=== PATIENT | male | born 1955 | race American Indian/Alaskan Native ===

== ENCOUNTER 2017-01-18 16:19 | Inpatient (IN) | payer MEDICARE, OTHER ==
[2017-01-18] MEDS ORDERED: NACL 0.9% 500 ML 500 ML IV ONE ×2 (16:26→18:36)
[2017-01-18] MEDS ORDERED: ZOSYN/NS 4.5GM/100ML 4.5 GM/100 ML VIAL IV ONE (16:34)
[2017-01-18] MEDS ORDERED: VANCOMYCIN/NS 1 GM/250 ML 1 GM/250 ML BAG IV ONE ×3 (16:34→19:30)
--- NOTE | 2017-01-18 16:58 | Emergency Department Report ---
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 denies: abdominal pain, chest pain, confusion, cough, diaphoresis, muscle aches, nausea/vomiting, rash, shortness of breath, sore throat, stiff neck, syncope ED Review of Systems ROS: Stated complaint: CHEST PAIN X 15 MIN/SEPTIC Other details as noted in HPI Comment: All other systems reviewed and negative ED Past Medical Hx - Past Medical History Previous Medical History?: Yes Hx Hypertension: Yes Hx Renal Disease: Yes - Surgical History Past Surgical History?: Yes Additional Surgical History: abdominal surgery - Social History Smoking Status: Never Smoker Substance Use Type: None - Medications Home Medications: Home Medications Medication Instructions Recorded Confirmed Last Taken Type Ciprofloxacin HCl [Ciprofloxacin 500 mg PO TID 01/18/17 01/18/17 Unknown History TAB] Gabapentin [Neurontin] 300 mg PO BID 01/18/17 01/18/17 Unknown History Labetalol HCl [Labetalol HCl] 200 mg PO Q12H 01/18/17 01/18/17 Unknown History NIFEdipine XL [Procardia Xl] 120 mg PO BID 01/18/17 01/18/17 Unknown History Rosuvastatin (Nf) [Crestor] 10 mg PO QHS 01/18/17 01/18/17 Unknown History cloNIDine [Catapres] 0.2 mg PO QDAY 01/18/17 01/18/17 Unknown History metroNIDAZOLE [Flagyl TAB] 250 mg PO BID 01/18/17 01/18/17 Unknown History predniSONE [Deltasone] 20 mg PO BID 01/18/17 01/18/17 Unknown History traMADol [Ultram 50 MG tab] 50 mg PO PRN PRN 01/18/17 01/18/17 Unknown History ED Physical Exam - General Limitations: Other General appearance: alert, in distress - Head Head exam: Present: atraumatic, normocephalic - Eye Eye exam: Present: normal appearance, PERRL - ENT ENT exam: Present: normal exam, mucous membranes dry - Neck Neck exam: Present: normal inspection - Respiratory Respiratory exam: Present: respiratory distress, rhonchi - Cardiovascular Cardiovascular Exam: Present: tachycardia - GI/Abdominal GI/Abdominal exam: Present: soft. Absent: distended, tenderness, guarding, rebound, rigid - Extremities Exam Extremities exam: Present: normal inspection - Back Exam Back exam: Present: normal inspection, full ROM ED Course Vital Signs 01/18/17 16:21 Temperature 104 F H - Central Line Placement Right Femoral Time Out Performed: Yes Patient Placed on Monitor/Pulse Ox: Yes Prep: mask, gown Central Line Prep: Povidone-Iodine 1%, Chlorhexidine scrub Local Anesthesia Used: Lidocaine 1% Ultrasound Used for Placement: No Central Line Lumen Inserted: single Bloods Obtained for Lab: No Central Line Position: good blood return, all ports aspirated, flus Dressing Applied: Tegaderm Patient Tolerated Procedure: well Complications: none ED Medical Decision Making - Lab Data Result diagrams: 01/18/17 16:34 01/18/17 16:34 - EKG Data -: EKG Interpreted by Me Rate: tachycardia - Radiology Data Radiology results: report reviewed, image reviewed - Medical Decision Making patient will need admisison for possible sepsis , recently dc yesterday for diverticulitis from another facility, HR at 140, fever at 104, WBC is normal , and he his isn his normal renal failure status , elevated liver enzymes , abx given will admit. Critical care time in (mins) excluding proc time.: 45 Critical care attestation.: If time is entered above; I have spent that time in minutes in the direct care of this critically ill patient, excluding procedure time. ED Disposition Clinical Impression: Sepsis Disposition: [id number] OP ADMIT IP TO THIS HOSP Is pt being admited?: Yes Does the pt Need Aspirin: No Condition: Fair Referrals: TATE RONQUILLO MD [Primary Care Provider] - 3-5 Days Time of Disposition: 18:06
[2017-01-18 17:23] LABS: Hematocrit 42.5 % (35.5-45.6); Hemoglobin 13.8 gm/dl (11.8-15.2); Mean Corpuscular HGB Conc 33 % (32-34); Mean Corpuscular Hemoglobin 32 pg (28-32); Mean Corpuscular Volume 98 fl (84-94); Platelet Count 200 K/mm3 (140-440); Red Blood Count 4.34 M/mm3 (3.65-5.03); Red Cell Distribution Width 18.5 % (13.2-15.2); White Blood Count 8.7 K/mm3 (4.5-11.0)
[2017-01-18 17:24] LABS: Albumin 3.9 g/dL (3.9-5); Albumin/Globulin Ratio 1.4 %; BUN/Creatinine Ratio 1.83; Bilirubin,Total 0.8 mg/dL (0.1-1.2); Chloride 89.3 mmol/L (98-107); Total Protein 6.6 g/dL (6.3-8.2)
[2017-01-18 17:29] LABS: Potassium 5.2 mmol/L (3.6-5.0)
[2017-01-18 17:39] LABS: INR 1.06 (0.87-1.13)
[2017-01-18 17:47] LABS: Erythrocyte Sedimentation Rate 61 mm/Hr (0-20)
--- NOTE | 2017-01-18 17:50 | History and Physical Report ---
History of Present Illness Chief complaint: fever, confusion History of present illness: 61 YO Male with HTN, CKD 4, Obesity presents to ED for evaluation. Pt unable to provide detailed history. History taken from family members who are at the bedside during exam and interview. Pt family report fever, and confusion, for the past 1 day with worsening symptoms over the past 3 hours. Pt family denies reports of trauma, CP,Palpitations, NVD, BRBPR, Syncope, Hemoptysis, Productive cough, Recent ill contacts, headache, Neck Pain. Pt seen and evaluated in ED and found to be hypotensive, and encephalopathic. PT treated with IVF, pressor support. Central line placed in ED. Past History Past Medical History: ESRD, hypertension Past Surgical History: No surgical history, Other (reviewed) Social history: , lives with family. denies: smoking, alcohol abuse, prescription drug abuse Family history: diabetes, hypertension Medications and Allergies Allergies Allergy/AdvReac Type Severity Reaction Status Date / Time No Known Allergies Allergy Unverified 01/18/17 16:26 Home Medications Medication Instructions Recorded Confirmed Last Taken Type Ciprofloxacin HCl [Ciprofloxacin 500 mg PO TID 01/18/17 01/18/17 Unknown History TAB] Gabapentin [Neurontin] 300 mg PO BID 01/18/17 01/18/17 Unknown History Labetalol HCl [Labetalol HCl] 200 mg PO Q12H 01/18/17 01/18/17 Unknown History NIFEdipine XL [Procardia Xl] 120 mg PO BID 01/18/17 01/18/17 Unknown History Rosuvastatin (Nf) [Crestor] 10 mg PO QHS 01/18/17 01/18/17 Unknown History cloNIDine [Catapres] 0.2 mg PO QDAY 01/18/17 01/18/17 Unknown History metroNIDAZOLE [Flagyl TAB] 250 mg PO BID 01/18/17 01/18/17 Unknown History predniSONE [Deltasone] 20 mg PO BID 01/18/17 01/18/17 Unknown History traMADol [Ultram 50 MG tab] 50 mg PO PRN PRN 01/18/17 01/18/17 Unknown History Active Meds: Active Medications Vancomycin HCl (Vancomycin/Ns 1 Gm/250 Ml) 1 gm in 250 mls @ 167.007 mls/hr IV ONCE ONE PRN Reason: Protocol Stop: 01/18/17 18:03 Review of Systems ROS unobtainable: due to mental status Exam - Constitutional Vitals: Temp Pulse Resp BP Pulse Ox 104 F H 01/18/17 16:21 General appearance: Present: obese - EENT Eyes: Present: PERRL - Neck Neck: Present: supple, normal ROM - Respiratory Respiratory effort: labored Respiratory: bilateral: diminished - Cardiovascular Rhythm: other (tachycardic) Heart Sounds: Present: S1 & S2. Absent: rub, click - Extremities Extremities: no ischemia, abnormal (Capillary refill: 3.5 seconds) Extremity abnormal: edema Peripheral Pulses: within normal limits - Abdominal General gastrointestinal: Present: soft, non-tender, non-distended, normal bowel sounds Male genitourinary: Present: normal - Integumentary Integumentary: Present: clear, dry, decreased turgor - Musculoskeletal Musculoskeletal: generalized weakness - Psychiatric Psychiatric: no intact judgment & insight, no memory intact - Neurologic Neurologic: CNII-XII intact, moves all extremities, no gait normal Results - Labs CBC & Chem 7: 01/18/17 16:34 01/18/17 16:34 Labs: Abnormal lab results 01/18/17 01/18/17 01/18/17 Range/Units 16:34 16:34 16:34 MCV 98 H (84-94) fl RDW 18.5 H (13.2-15.2) % VBG pH 7.423 H (7.320-7.420) Sodium 136 L (137-145) mmol/L Potassium 5.2 H (3.6-5.0) mmol/L Chloride 89.3 L (98-107) mmol/L BUN 25 H (9-20) mg/dL Creatinine 13.6 H (0.8-1.5) mg/dL Glucose 136 H (75-100) mg/dL AST 359 H (5-40) units/L ALT 346 H (7-56) units/L C-Reactive Protein (0.00-1.30) mg/dL 01/18/17 Range/Units 16:50 MCV (84-94) fl RDW (13.2-15.2) % VBG pH (7.320-7.420) Sodium (137-145) mmol/L Potassium (3.6-5.0) mmol/L Chloride (98-107) mmol/L BUN (9-20) mg/dL Creatinine (0.8-1.5) mg/dL Glucose (75-100) mg/dL AST (5-40) units/L ALT (7-56) units/L C-Reactive Protein 12.30 H (0.00-1.30) mg/dL Assessment and Plan - Patient Problems (1) Sepsis Current Visit: Yes Status: Acute Qualifiers: Sepsis type: Escherichia coli Qualified Code(s): A41.51 - Sepsis due to Escherichia coli [E. coli] Plan to address problem: Sepsis Protocol: IV abx, IVF, pressor support, monitor uop q shift, blood cultures, serial lactate level, The high probability of a clinically significant, sudden or life threatening deterioration of the [pulmonary, cardiac, renal] system(s) required my full and direct attention, intervention and personal management. The aggregate critical care time was [65] minutes. This time is in addition to time spent performing reported procedures but includes the following: [x] Data Review and interpretation [x] Patient assessment and monitoring of vital signs [x] Documentation [x] Medication orders and management (2) ESRD (end stage renal disease) Current Visit: Yes Status: Acute Plan to address problem: Nephrology consulted, dialysis as per renal team. (3) Hyperkalemia Current Visit: Yes Status: Acute Plan to address problem: kayelelate, calcium gluconate, telemetry monitoring. (4) HTN (hypertension) Current Visit: Yes Status: Acute Qualifiers: Hypertension type: H Plan to address problem: hypotensive at this time, hold antihypertensive medication (5) DVT prophylaxis Current Visit: Yes Status: Acute
[2017-01-18] MEDS ORDERED: MILK OF MAGNESIA PO PRN (17:58)
[2017-01-18] MEDS ORDERED: DUONEB *Not for PRN Use IH (17:58)
[2017-01-18] MEDS ORDERED: TYLENOL PO PRN (17:58)
[2017-01-18] MEDS ORDERED: ZOFRAN IV PRN (17:58)
[2017-01-18] MEDS ORDERED: DULCOLAX PR PRN (17:58)
[2017-01-18] MEDS ORDERED: XYLOCAINE 1% 20 mL ONE (18:25)
[2017-01-18] MEDS ORDERED: NACL 0.9% 1000 ML IV ONE (18:36)
[2017-01-18] MEDS ORDERED: VANCOMYCIN VIAL IV ONE (18:36)
[2017-01-18] MEDS ORDERED: PROVENTIL IH PRN (18:37)
[2017-01-18] MEDS ORDERED: LEVOPHED DRIP 4 MG/NS 250 ML 4 MG/250 ML BAG IV ONE (18:48)
[2017-01-18] MEDS ORDERED: VANCOMYCIN PHARMACY TO DOSE IV SCH (19:00)
[2017-01-18] MEDS ORDERED: LEVOPHED DRIP 4 MG/NS 250 ML 4 MG/250 ML BAG IV SCH (19:00)
[2017-01-18] MEDS ORDERED: NORMODYNE PO SCH (19:00)
[2017-01-18 19:02] LABS: Basophils % (Manual) 0 % (0.0-1.8); Blastocytes % (Manual) 0 %
[2017-01-18 19:03] LABS: Diff Status Complete; Large Platelets Few; RBC Morphology Normal
[2017-01-18] MEDS ORDERED: XYLOCAINE 1% 20 mL INFILTRATI ONE (19:09)
[2017-01-18] MEDS ORDERED: KIONEX PR ONE (19:10)
[2017-01-18] MEDS ORDERED: CALCIUM GLUCONATE 1,000 MG in NACL 0.9% 100 ML IV ONE (19:10)
[2017-01-18] MEDS ORDERED: VANCOMYCIN 2,000 MG in NACL 0.9% 500 ML 500 ML IV ONE (20:00)
[2017-01-18] MEDS ORDERED: TYLENOL ONE (20:20)
[2017-01-18] MEDS ORDERED: NON-FORMULARY (Rosuvastatin (Nf) 10 MG) PO SCH (22:00)
[2017-01-18] MEDS ORDERED: ZOSYN/NS 4.5GM/100ML 4.5 GM/100 ML VIAL IV SCH (22:00)
[2017-01-18] MEDS ORDERED: PROCARDIA XL PO SCH (22:00)
[2017-01-18] MEDS: DELTASONE PO SCH (22:05)
[2017-01-18] MEDS: PEPCID PO SCH (22:29)
[2017-01-18] MEDS: NEURONTIN PO SCH (22:29)
[2017-01-19] MEDS: ULTRAM PO PRN ×2 (00:18→07:02)
[2017-01-19] MEDS: PERCOCET 5/325 PO PRN ×2 (01:39→20:36)
[2017-01-19] MEDS: ZOSYN/NS 2.25 GM/50ML 2.25 GM/50 ML BAG IV SCH (07:00)
--- NOTE | 2017-01-19 07:44 | XRay Report ---
Single view chest: History: Possible sepsis. Findings: Cardiomegaly. Trachea is midline. Faint airspace opacities are noted bilaterally in the lower lobes. Normal CP angles. Impression: Early pulmonary edema or bilateral pneumonia.
--- NOTE | 2017-01-19 07:45 | XRay Report ---
Single view chest: Compared to 01/18/17 obtained at 4:58 PM. History: Failed central line placement. Findings: Cardiomegaly. Trachea is midline. No pneumothorax or pleural effusion. No significant interval change. PICC line not visualized. Impression: Findings as detailed above.
[2017-01-19 08:34] LABS: BUN/Creatinine Ratio 2.03; Calcium 9.8 mg/dL (8.4-10.2); Chloride 93.1 mmol/L (98-107)
[2017-01-19 08:35] LABS: Potassium 6.5 mmol/L (3.6-5.0)
[2017-01-19 09:15] LABS: White Blood Count TNR K/mm3 (4.5-11.0)
[2017-01-19 09:16] LABS: Hematocrit TNR % (35.5-45.6); Hemoglobin TNR gm/dl (11.8-15.2); Mean Corpuscular HGB Conc TNR % (32-34); Mean Corpuscular Hemoglobin TNR pg (28-32); Mean Corpuscular Volume TNR fl (84-94); Platelet Count TNR K/mm3 (140-440); Red Blood Count TNR M/mm3 (3.65-5.03); Red Cell Distribution Width TNR % (13.2-15.2)
[2017-01-19 09:17] LABS: Mean Platelet Volume TNR fl (6-12)
[2017-01-19] MEDS ORDERED: CATAPRES PO SCH (10:00)
--- NOTE | 2017-01-19 10:26 | Progress Note ---
Assessment and Plan Assessment and plan: 61 YO Male with HTN, CKD 4, Obesity brought by family for progressive fever, and confusion, for 1 day Sepstic shock/severe sepsis Due to pneumonia, continue broad-spectrum antibiotics, obtain sputum cultures , obtain UA, follow blood cultures Continue IV fluids, vision has been weaned off pressor support, monitor blood pressure closely. Hold all blood pressure medications, Community-acquired Pneumonia, likely due to gram-positive bacteria Continue antibiotics as listed above, obtain sputum cultures. metabolic encephalopathy due to sepsis, rx underlying cause ESRD (end stage renal disease) Nephrology consulted, dialysis as per renal team. Hyperkalemia to be corrected by HD HTN (hypertension) hypotensive at this time, hold antihypertensive medication Dementia with Delireum continue supportive care, frequent reorientation, restraints to avoid line pulling DVT prophylaxis heparin subq The high probability of a clinically significant, sudden or life threatening deterioration of the [pulmonary, cardiac, renal] system(s) required my full and direct attention, intervention and personal management. The aggregate critical care time was [33] minutes. This time is in addition to time spent performing reported procedures but includes the following: [x] Data Review and interpretation [x] Patient assessment and monitoring of vital signs [x] Documentation [x] Medication orders and management History Interval history: RN notified me that he got confused last night and pulled out his Femoral line Hospitalist Physical - Physical exam Narrative exam: General: Patient appears well in no distress HEENT: MMM, EOMI cardiac: S1-S2 heard lungs: clear to auscultation, abdomen: soft, nontender, nondistended bowel sounds positive extremities: no edema clubbing or cyanosis Skin: no rash or lesion Neuro: no focal deficit Psych: appropriate behavior and mood, cognition intact - Constitutional Vitals: Temp Pulse Resp BP Pulse Ox 98.1 F 90 30 H 111/66 99 01/19/17 08:00 01/19/17 08:30 01/19/17 07:30 01/19/17 08:30 01/19/17 08:30 General appearance: Present: obese Results - Labs CBC & Chem 7: 01/19/17 10:12 01/19/17 10:12 Labs: Laboratory Last Values WBC TNR 01/19/17 07:48 RBC TNR 01/19/17 07:48 Hgb TNR 01/19/17 07:48 Hct TNR 01/19/17 07:48 MCV TNR 01/19/17 07:48 MCH TNR 01/19/17 07:48 MCHC TNR 01/19/17 07:48 RDW TNR 01/19/17 07:48 Plt Count TNR 01/19/17 07:48 Add Manual Diff Complete 01/18/17 16:34 Total Counted 100 01/18/17 16:34 Seg Neutrophils % Watch Crystal Cutter 01/18/17 16:34 Seg Neuts % (Manual) 75.0 % (40.0-70.0) H 01/18/17 16:34 Band Neutrophils % 19.0 % 01/18/17 16:34 Lymphocytes % (Manual) 1.0 % (13.4-35.0) L 01/18/17 16:34 Reactive Lymphs % (Man) 0 % 01/18/17 16:34 Monocytes % (Manual) 4.0 % (0.0-7.3) 01/18/17 16:34 Eosinophils % (Manual) 1.0 % (0.0-4.3) 01/18/17 16:34 Basophils % (Manual) 0 % (0.0-1.8) 01/18/17 16:34 Metamyelocytes % 0 % 01/18/17 16:34 Myelocytes % 0 % 01/18/17 16:34 Promyelocytes % 0 % 01/18/17 16:34 Blast Cells % 0 % 01/18/17 16:34 Nucleated RBC % Not Reportable 01/18/17 16:34 Seg Neutrophils # Man 6.5 K/mm3 (1.8-7.7) 01/18/17 16:34 Band Neutrophils # 1.7 K/mm3 01/18/17 16:34 Lymphocytes # (Manual) 0.1 K/mm3 (1.2-5.4) L 01/18/17 16:34 Abs React Lymphs (Man) 0.0 K/mm3 01/18/17 16:34 Monocytes # (Manual) 0.3 K/mm3 (0.0-0.8) 01/18/17 16:34 Eosinophils # (Manual) 0.1 K/mm3 (0.0-0.4) 01/18/17 16:34 Basophils # (Manual) 0.0 K/mm3 (0.0-0.1) 01/18/17 16:34 Metamyelocytes # 0.0 K/mm3 01/18/17 16:34 Myelocytes # 0.0 K/mm3 01/18/17 16:34 Promyelocytes # 0.0 K/mm3 01/18/17 16:34 Blast Cells # 0.0 K/mm3 01/18/17 16:34 WBC Morphology Not Reportable 01/18/17 16:34 Hypersegmented Neuts Not Reportable 01/18/17 16:34 Hyposegmented Neuts Not Reportable 01/18/17 16:34 Hypogranular Neuts Not Reportable 01/18/17 16:34 Smudge Cells Not Reportable 01/18/17 16:34 Toxic Granulation Not Reportable 01/18/17 16:34 Toxic Vacuolation Not Reportable 01/18/17 16:34 Dohle Bodies Not Reportable 01/18/17 16:34 Pelger-Huet Anomaly Not Reportable 01/18/17 16:34 Lanny Rods Not Reportable 01/18/17 16:34 Platelet Estimate Appears normal 01/18/17 16:34 Clumped Platelets Not Reportable 01/18/17 16:34 Plt Clumps, EDTA Not Reportable 01/18/17 16:34 Large Platelets Few 01/18/17 16:34 Giant Platelets Not Reportable 01/18/17 16:34 Platelet Satelliting Not Reportable 01/18/17 16:34 Plt Morphology Comment Not Reportable 01/18/17 16:34 RBC Morphology Normal 01/18/17 16:34 Dimorphic RBCs Not Reportable 01/18/17 16:34 Polychromasia Not Reportable 01/18/17 16:34 Hypochromasia Not Reportable 01/18/17 16:34 Poikilocytosis Not Reportable 01/18/17 16:34 Anisocytosis Not Reportable 01/18/17 16:34 Microcytosis Not Reportable 01/18/17 16:34 Macrocytosis Not Reportable 01/18/17 16:34 Spherocytes Not Reportable 01/18/17 16:34 Pappenheimer Bodies Not Reportable 01/18/17 16:34 Sickle Cells Not Reportable 01/18/17 16:34 Target Cells Not Reportable 01/18/17 16:34 Tear Drop Cells Not Reportable 01/18/17 16:34 Ovalocytes Not Reportable 01/18/17 16:34 Helmet Cells Not Reportable 01/18/17 16:34 Lavarez-Emmonak Bodies Not Reportable 01/18/17 16:34 Chama Rings Not Reportable 01/18/17 16:34 Keenan Cells Not Reportable 01/18/17 16:34 Bite Cells Not Reportable 01/18/17 16:34 Crenated Cell Not Reportable 01/18/17 16:34 Elliptocytes Not Reportable 01/18/17 16:34 Acanthocytes (Spur) Not Reportable 01/18/17 16:34 Rouleaux Not Reportable 01/18/17 16:34 Hemoglobin C Crystals Not Reportable 01/18/17 16:34 Schistocytes Not Reportable 01/18/17 16:34 Malaria parasites Not Reportable 01/18/17 16:34 ESR 61 mm/Hr (0-20) 01/18/17 16:34 Colten Bodies Not Reportable 01/18/17 16:34 Hem Pathologist Commnt No 01/18/17 16:34 PT 14.3 Sec. (12.2-14.9) 01/18/17 16:34 INR 1.06 (0.87-1.13) 01/18/17 16:34 VBG pH 7.423 (7.320-7.420) H 01/18/17 16:34 Sodium 132 mmol/L (137-145) L 01/19/17 07:48 Potassium 6.5 mmol/L (3.6-5.0) H* D 01/19/17 07:48 Chloride 93.1 mmol/L (98-107) L 01/19/17 07:48 Carbon Dioxide 23 mmol/L (22-30) 01/19/17 07:48 Anion Gap 22 mmol/L 01/19/17 07:48 BUN 32 mg/dL (9-20) H 01/19/17 07:48 Creatinine 15.7 mg/dL (0.8-1.5) H 01/19/17 07:48 Estimated GFR 4 ml/min 01/19/17 07:48 BUN/Creatinine Ratio 2.03 % 01/19/17 07:48 Glucose 148 mg/dL (75-100) H 01/19/17 07:48 Lactic Acid 1.60 mmol/L (0.7-2.0) 01/18/17 21:17 Calcium 9.8 mg/dL (8.4-10.2) 01/19/17 07:48 Total Bilirubin 0.80 mg/dL (0.1-1.2) 01/18/17 16:34 AST 359 units/L (5-40) H 01/18/17 16:34 ALT 346 units/L (7-56) H 01/18/17 16:34 Alkaline Phosphatase 116 units/L (35-129) 01/18/17 16:34 C-Reactive Protein 12.30 mg/dL (0.00-1.30) H 01/18/17 16:50 Total Protein 6.6 g/dL (6.3-8.2) 01/18/17 16:34 Albumin 3.9 g/dL (3.9-5) 01/18/17 16:34 Albumin/Globulin Ratio 1.4 % 01/18/17 16:34 Blood Type A POSITIVE 01/18/17 21:12 Antibody Screen TNR 01/18/17 21:12 [place] Antibody Screen Negative 01/18/17 21:12
[2017-01-19 10:39] LABS: Hematocrit 37.5 % (35.5-45.6); Mean Corpuscular HGB Conc 32 % (32-34); Mean Corpuscular Hemoglobin 32 pg (28-32); Mean Corpuscular Volume 98 fl (84-94); Platelet Count 197 K/mm3 (140-440); Red Blood Count 3.82 M/mm3 (3.65-5.03); Red Cell Distribution Width 18.7 % (13.2-15.2); White Blood Count 13.4 K/mm3 (4.5-11.0)
[2017-01-19 10:58] LABS: BUN/Creatinine Ratio 2.09; Calcium 9.9 mg/dL (8.4-10.2); Chloride 92.6 mmol/L (98-107)
[2017-01-19 10:59] LABS: Potassium 6.5 mmol/L (3.6-5.0)
[2017-01-19] MEDS: DELTASONE PO SCH ×2 (12:26→22:47)
[2017-01-19] MEDS: NEURONTIN PO SCH ×2 (12:27→22:48)
[2017-01-19] MEDS: PEPCID PO SCH ×2 (12:41→22:48)
--- NOTE | 2017-01-19 12:53 | Admit Criteria Form ---
Admission Criteria Documentation: SEPSIS and OTHER FEBRILE ILLNESS, W/O FOCAL INFECTION Clinical Indications for Admission to Inpatient Care ( Place 'X' for any and all applicable criteria): Admission is indicated for ANY ONE of the following (1)(2)(3)(4): [ ] I. Bacteremia [ ]II. Suspected or identified specific infection requiring hospitalization (eg, meningitis, endocarditis) [ ]III. Hemodynamic instability [ ]IV. Altered mental status [ ]V. Failure or unavailability of outpatient antimicrobial treatment [ ]. Hypoxemia [ ]VII. Seizures [ ]VIII. High-risk febrile neutropenia [ ]IX. Need for parenteral antibiotic in patient who is likely to abuse vascular access device (eg, injection drug user) [A](7) [ ]X. Temperature greater than 104.9 degrees F (40.5 degrees C) (oral) [ X]XI. Inpatient admission required rather than observation care because of ANY ONE of the following: [ X]1) Specific infection identified that is too severe for outpatient treatment or observation care trial [ ]2) Metabolic disorder (eg, hypoglycemia, hyperglycemia, metabolic acidosis) that is severe or persistent [ ]3) Temperature greater than 103.1 degrees F (39.5 degrees C) ( oral) that is not responsive to observation care treatment [ ]4) IV fluid to replace significant ongoing (eg, for over 24 hours) losses (> 3 L/m2 per day) [ ]5) Supplemental oxygen or respiratory treatments for over 24 hours that is performable only in acute inpatient setting [ ]6) Parenteral nutrition regimen need that must be implemented on inpatient basis [ ]7) Strict or protective (eg, laminar flow) isolation [ ]8) Other condition, treatment or monitoring requiring inpatient admission Extended stay beyond goal length of stay may be needed for(1)(3) [ ]a) Sepsis or septic shock(22) [ ]b) Positive blood cultures [ ]c) Insufficient oral intake [ ]d) High-risk febrile neutropenia(29)(30) [ ]e) Continued fever and clinical instability [ ]f) Clinically active comorbid illness (e.g,heart failure, renal failure , diabetes) The original [facility] content created by Delisa Florez has been revised. The portions of the content which have been revised are identified through the use of italic text or in bold, and Delisa Florez has neither reviewed nor approved the modified material. All other unmodified content is copyright [facility]. Please see references footnoted in the original [facility] edition 2016 Admission Criteria Met: Yes
[2017-01-19] MEDS ORDERED: HEPARIN/NS 5000 UNIT/500ML(CATH LAB) 500 ML IR ONE (13:01)
[2017-01-19] MEDS ORDERED: XYLOCAINE 2% INFILTRATI ONE (13:01)
[2017-01-19] MEDS ORDERED: VERSED ONE (13:01)
[2017-01-19] MEDS ORDERED: SUBLIMAZE ONE (13:01)
[2017-01-19] MEDS ORDERED: NACL 0.9% 250ML 0 ML ONE (13:02)
[2017-01-19] MEDS ORDERED: ANCEF/STERILE WATER 2 GM/20 ML 2 GM/20 ML SYRINGE IV ONE (13:02)
--- NOTE | 2017-01-19 14:00 | Operative Report ---
Operative Report Operative Report: EXAM: ULTRASOUND AND FLUOROSCOPIC GUIDED PLACEMENT OF TUNNELED CENTRAL VENOUS CATHETER CLINICAL INDICATION: SEPSIS DATE: 01/19/2017 PROCEDURE: Following an explanation of the risks, benefits and alternatives; written informed consent was obtained. The patient was brought to the injury graphic suite and placed in supine position on the examination table. Initial ultrasound evaluation of the right neck demonstrated widely patent right internal jugular vein. The right neck was prepped and draped in the usual sterile fashion. 1% lidocaine was used for anesthesia. Under ultrasound guidance, the right internal jugular vein was cannulated with a 7 cm 21-gauge needle. A 0.018 guidewire was advanced into the IVC under fluoroscopy to document intravenous positioning. The needle was removed. An appropriate catheter exit site was chosen along the anterior right chest wall. 1% lidocaine was used for anesthesia at the catheter exit site and along the tunnel tract. A Bard dual-lumen power PICC was then tunneled antegrade from the catheter exit site to the venotomy site. A 5.5 Malay peel-away sheath was placed over the guidewire and advance centrally. Following standard guidewire measurements, the guidewire was removed and the PICC cut to length and inserted through the peel-away sheath. The tip was positioned in the proximal right atrium. Peel-away sheath was removed. Both ports flushed and aspirated easily and were then locked with heparinized saline. The catheter was securely fastened of the skin surface using 2-0 Ethilon suture. Dermabond was also applied to the catheter exit site and the venotomy site. The patient tolerated the procedure well. There were no immediate post procedure complications. Conscious sedation was not performed secondary to patient's non-nothing by mouth status. Continuous cardiopulmonary monitoring was utilized. IMPRESSION: 1) Ultrasound and fluoroscopic guided placement of a non-cuffed tunneled central venous catheter.
[2017-01-19] MEDS ORDERED: NACL 0.9% 100 ML IV PRN (14:29)
[2017-01-19] MEDS ORDERED: CALCIUM CHLORIDE IV ONE (14:32)
--- NOTE | 2017-01-19 14:34 | Consultation ---
History of Present Illness - Reason for Consult Consult date: 01/20/17 - History of Present Illness Thank you for the consultation Patient was evaluated today Assessment and plan End-stage renal disease patient is currently followed by Dr. Epstein and has been currently on maintenance hemodialysis Sunday vessunday Patient has been dialysis dependent for last 3 years for end-stage renal disease Patient was also noted to be febrile with fever in the range of 103-106 with myalgias Recently was also admitted at [facility] for nearly 4 days and was diagnosed with diverticular disease Hyperkalemia currently is post hemodialysis it was noted to be monitored it would avoid any form of BERYL inhibitors or angiotensin receptor blanco Monitor dialysis related labs Patient currently does have a central line We'll continue to follow and make recommendation from renal standpoint History of presenting illness Patient is 61-year-old the male who is currently established with Dr. Epstein for his end-stage renal disease care. Patient is currently being dialyze on Sunday vessunday schedule and presented to hospital with complaints of fever or chills myalgias. Recently was also admitted at [facility] for nearly 3-4 days and was told to have diverticular disease. Patient has been tolerating his hemodialysis treatment well currently he also does have a central line due to difficult IV access events of this hospitalization noted. History is mostly obtained from patient's as well as patient then current chart was also reviewed Review of system positive for recent admission for diverticular disease at [facility] fevers chills myalgias Complete review of other systems were obtained pertinent positive mentioned above other review of system negative Physical examination Vitals: Reviewed from this admission HEENT: Oral mucosa moist no pallor or icterus Neck: Supple no thyromegaly no JVD Chest: Clear to auscultation no crackles rales or wheezes Heart: Regular rate and rhythm S1 and S2 are heard Abdomen: Soft minimal left lower quadrant tenderness otherwise unremarkable Extremity: Minimal edema dry skin Neurological: Alert awake follows commands Psych: No evidence of agitation and aggression noted Back: Nontender thoracolumbar spine Labs and imaging were reviewed from this admission Past History Past Medical History: ESRD, hypertension Past Surgical History: No surgical history, Other (reviewed) Social history: , lives with family. denies: smoking, alcohol abuse, prescription drug abuse Family history: diabetes, hypertension Medications and Allergies Allergies Allergy/AdvReac Type Severity Reaction Status Date / Time lactose AdvReac Diarrhea Verified 01/19/17 11:00 Home Medications Medication Instructions Recorded Confirmed Last Taken Type Ciprofloxacin HCl [Ciprofloxacin 500 mg PO TID 01/18/17 01/18/17 Unknown History TAB] Gabapentin [Neurontin] 300 mg PO HS 01/18/17 01/20/17 Unknown History Labetalol HCl [Labetalol HCl] 200 mg PO Q12H 01/18/17 01/18/17 Unknown History NIFEdipine XL [Procardia Xl] 120 mg PO BID 01/18/17 01/18/17 Unknown History Rosuvastatin (Nf) [Crestor] 10 mg PO QHS 01/18/17 01/18/17 Unknown History cloNIDine [Catapres] 0.2 mg PO QDAY 01/18/17 01/18/17 Unknown History metroNIDAZOLE [Flagyl TAB] 250 mg PO BID 01/18/17 01/18/17 Unknown History predniSONE [Deltasone] 20 mg PO HS 01/18/17 01/20/17 Unknown History traMADol [Ultram 50 MG tab] 50 mg PO PRN PRN 01/18/17 01/18/17 Unknown History Renagel 800 mg PO TID 01/19/17 01/19/17 Unknown History Sevelamer HCl [Renagel] 2,400 mg PO TIDWM 01/20/17 01/20/17 01/18/17 History 2400 Active Meds: Active Medications Acetaminophen (Tylenol) 650 mg PO Q4H PRN PRN Reason: Pain MILD(1-3)/Fever >100.5/FOSTER Last Admin: 01/18/17 20:26 Dose: 650 mg Albuterol (Proventil) 2.5 mg IH Q4HRT PRN PRN Reason: Shortness Of Breath Atorvastatin Calcium (Lipitor) 20 mg PO QHS [facility] Last Admin: 01/18/17 22:05 Dose: 20 mg Bisacodyl (Dulcolax) 10 mg DE QDAY PRN PRN Reason: Constipation unrelieved by MOM Calcium Chloride (Calcium Chloride) 1,000 mg IV ONCE ONE Stop: 01/19/17 14:33 Famotidine (Pepcid) 20 mg PO BID [facility] Last Admin: 01/19/17 12:41 Dose: 20 mg Gabapentin (Neurontin) 300 mg PO BID [facility] Last Admin: 01/19/17 12:27 Dose: Not Given Norepinephrine (Levophed Drip 4 Mg/Ns 250 Ml) 4 mg in 250 mls @ 7.5 mls/hr IV TITR LENNY; 2 MCG/MIN PRN Reason: Protocol Last Titration: 01/19/17 01:59 Dose: 0 mcg/min, 0 mls/hr Piperacillin Sod/Tazobactam Sod (Zosyn/Ns 2.25 Gm/50ml) 2.25 gm in 50 mls @ 100 mls/hr IV Q8H [facility] Last Admin: 01/19/17 07:00 Dose: Not Given Sodium Chloride (Nacl 0.9%) 100 mls @ 999 mls/hr IV ODETTE PRN PRN Reason: Hypotension Magnesium Hydroxide (Milk Of Magnesia) 30 ml PO Q4H PRN PRN Reason: Constipation Ondansetron HCl (Zofran) 4 mg IV Q8H PRN PRN Reason: N/V unrelieved by Reglan Oxycodone/Acetaminophen (Percocet 5/325) 1 tab PO Q4H PRN PRN Reason: Pain, Moderate (4-6) Last Admin: 01/19/17 01:39 Dose: 1 tab Prednisone (Deltasone) 20 mg PO BID [facility] Last Admin: 01/19/17 12:26 Dose: Not Given Tramadol HCl (Ultram) 50 mg PO PRN PRN PRN Reason: Pain Last Admin: 01/19/17 07:02 Dose: 50 mg Vancomycin HCl (Vancomycin Pharmacy To Dose) 1 each IV PKCONSULT [facility] PRN Reason: Protocol Exam - Vital Signs Vital signs: Vital Signs Pulse Pulse Ox 149 H 100 01/18/17 16:16 01/18/17 16:16 Results - Lab Results 01/19/17 10:12 01/19/17 10:12 Most recent lab results Calcium 9.9 mg/dL (8.4-10.2) 01/19/17 10:12
[2017-01-19] MEDS ORDERED: CALCIUM GLUCONATE 1,000 MG in NACL 0.9% 100 ML IV ONE (15:00)
[2017-01-19] MEDS ORDERED: CALCIUM CHLORIDE 1,000 MG in NACL 0.9% 100 ML IV ONE (15:00)
[2017-01-20] MEDS: ULTRAM PO PRN ×2 (00:16→19:14)
[2017-01-20] MEDS: ZOSYN/NS 2.25 GM/50ML 2.25 GM/50 ML BAG IV SCH ×5 (01:47→18:25)
[2017-01-20] MEDS: DELTASONE PO SCH ×2 (09:48→22:01)
[2017-01-20] MEDS: NEURONTIN PO SCH ×2 (09:49→22:01)
[2017-01-20] MEDS: PEPCID PO SCH ×2 (09:50→22:01)
--- NOTE | 2017-01-20 12:15 | Vascular Lab Report ---
MISCELLANEOUS VESSEL IDENTIFICATION: COMMENTS ON THE SCAN: The right internal jugular vein was identified and under real-time ultrasound guidance was cannulated. IMPRESSION: Successful ultrasound guided vein cannulation.
--- NOTE | 2017-01-20 18:25 | Progress Note ---
Assessment and Plan 61 YO Male with HTN, CKD 4, Obesity brought by family for progressive fever, and confusion, for 1 day Sepstic shock/severe sepsis Due to pneumonia, continue broad-spectrum antibiotics, obtain sputum cultures , obtain UA, follow blood cultures Continue IV fluids, vision has been weaned off pressor support, monitor blood pressure closely. Hold all blood pressure medications, Community-acquired Pneumonia, likely due to gram-positive bacteria Continue antibiotics as listed above, obtain sputum cultures. metabolic encephalopathy due to sepsis, rx underlying cause ESRD (end stage renal disease) Nephrology consulted, dialysis as per renal team. Hyperkalemia Persists Ome dose of Kayexalate 60 gm given HTN (hypertension) hypotensive at this time, hold antihypertensive medication Dementia with Delireum continue supportive care, frequent reorientation, restraints to avoid line pulling DVT prophylaxis heparin subq Subjective Date of service: 01/20/17 Principal diagnosis: Sepsis/Pneumonia Interval history: S/p ULTRASOUND AND FLUOROSCOPIC GUIDED PLACEMENT OF TUNNELED CENTRAL VENOUS CATHETER into R Int jugular vein Objective - Constitutional Vitals: Vital Signs - 12hr 01/20/17 01/20/17 01/20/17 08:00 09:00 11:44 Temperature 98 F 98 F Pulse Rate [ 103 H 99 H Left] Respiratory 20 20 Rate Blood Pressure 118/78 130/78 [Left Arm] O2 Sat by Pulse 97 98 99 Oximetry 01/20/17 16:00 Temperature 97.7 F Pulse Rate [ 99 H Left] Respiratory 20 Rate Blood Pressure 142/78 [Left Arm] O2 Sat by Pulse Oximetry General appearance: Present: no acute distress, well-nourished - EENT Eyes: PERRL, EOM intact ENT: hearing intact, clear oral mucosa Ears: bilateral: normal - Neck Neck: supple, normal ROM - Respiratory Respiratory effort: normal Respiratory: bilateral: CTA - Breasts Breasts: normal - Cardiovascular Rhythm: regular Heart Sounds: Present: S1 & S2. Absent: gallop, rub Extremities: pulses intact, No edema, normal color, Full ROM - Gastrointestinal General gastrointestinal: Present: soft, non-tender, non-distended, normal bowel sounds - Genitourinary Male genitourinary: normal - Integumentary Integumentary: clear, warm, dry - Musculoskeletal Musculoskeletal: 1, strength equal bilaterally - Neurologic Neurologic: moves all extremities - Psychiatric Psychiatric: memory intact, appropriate mood/affect, intact judgment & insight - Labs CBC & Chem 7: 01/19/17 10:12 01/19/17 10:12
[2017-01-20] MEDS ORDERED: KIONEX PO ONE (18:43)
[2017-01-21] MEDS ORDERED: KIONEX PO ONE ×2 (01:26→14:27)
[2017-01-21] MEDS: ZOSYN/NS 2.25 GM/50ML 2.25 GM/50 ML BAG IV SCH ×3 (03:48→17:57)
[2017-01-21 05:31] LABS: Hematocrit 34.1 % (35.5-45.6); Hemoglobin 11.1 gm/dl (11.8-15.2); Mean Corpuscular HGB Conc 33 % (32-34); Mean Corpuscular Hemoglobin 32 pg (28-32); Mean Corpuscular Volume 97 fl (84-94); Platelet Count 234 K/mm3 (140-440); Red Blood Count 3.51 M/mm3 (3.65-5.03); Red Cell Distribution Width 18.4 % (13.2-15.2); White Blood Count 7.6 K/mm3 (4.5-11.0)
[2017-01-21 05:52] LABS: BUN/Creatinine Ratio 2.16; Calcium 9.8 mg/dL (8.4-10.2); Chloride 94.9 mmol/L (98-107); Potassium 5.5 mmol/L (3.6-5.0)
[2017-01-21 06:15] LABS: Basophils % (Manual) 0 % (0.0-1.8); Blastocytes % (Manual) 0 %; Diff Status Complete; Eosinophils % (Manual) 0 % (0.0-4.3); Platelet Estimate Consistent w Auto; RBC Morphology Normal
--- NOTE | 2017-01-21 10:24 | Progress Note ---
Subjective Principal diagnosis: Sepsis/Pneumonia Interval history: Patient was seen today for follow-up of multiple renal related issues Events of 24 hours vitals labs intake output medications were reviewed patient does have a history of intermittent hyperkalemia which has also been present in the outpatient setting According to the patient he has had his fistulogram done approximately 2 months ago He has been very careful with his diet Interdisciplinary notes were also reviewed Past medical history; reviewed Family and social history: Reviewed Objective: Vitals: Reviewed HEENT: Oral mucosa moist no uremic order mild pallor no icterus Neck: Supple, no carotid bruit Heart: Regular rate and rhythm S1-S2 heard no S3 or S4 no pericardial rub Abdomen: Soft NT no suprapubic masses no CVA tenderness no renal bruit Extremity: Minimal edema dry skin no peripheral cyanosis Dermatology: Dry skin assessment and plan End-stage renal disease currently on maintenance hemodialysis patient will need to be dialyzed on Sunday and Sunday Hyperkalemia which was in the 6.5 range currently 5.5 will give Kayexalate 30 g today would like to increase his treatment time to 4 hours increased blood flow dialysate flow rate and follow-up he is clearly not a candidate for any form of BERYL inhibitor as angiotensin receptor blanco avoid any nonsteroidal drug use educated about low potassium diet In outpatient setting he is currently followed by Recently was admitted at [facility] for diverticular disease Here for a respiratory infection but clinically doing very well has had fever of 103 to 106 with myalgia ache and chills currently much better Overall he is stable from renal standpoint We'll continue to follow and make recommendations Objective - Vital Signs Vital signs: Vital Signs - 12hr 01/21/17 01/21/17 00:00 09:08 Temperature 97.6 F Pulse Rate [ 98 H Left] Pulse Rate [ 98 H Right Radial] Respiratory 16 Rate Blood Pressure 156/77 [Left Arm] O2 Sat by Pulse 97 97 Oximetry - Lab 01/21/17 Unknown 01/21/17 Unknown Most recent lab results Calcium 9.8 mg/dL (8.4-10.2) 01/21/17 Unknown
[2017-01-21] MEDS: PEPCID PO SCH (11:12)
[2017-01-21] MEDS: NEURONTIN PO SCH (11:12)
[2017-01-21] MEDS: DELTASONE PO SCH (11:12)
[2017-01-21] MEDS ORDERED: NACL 0.9% 100 ML IV PRN (14:26)
[2017-01-21 15:10] LABS: Albumin 3.2 g/dL (3.9-5); BUN/Creatinine Ratio 2.32; Bilirubin,Total 0.3 mg/dL (0.1-1.2); Calcium 9.2 mg/dL (8.4-10.2); Chloride 94.4 mmol/L (98-107); Phosphorous 4.8 mg/dL (2.5-4.5); Potassium 4.5 mmol/L (3.6-5.0); Total Protein 6.3 g/dL (6.3-8.2)
--- NOTE | 2017-01-21 16:16 | Progress Note ---
Assessment and Plan 61 YO Male with HTN, CKD 4, Obesity brought by family for progressive fever, and confusion, for 1 day Sepstic shock/severe sepsis Due to pneumonia, continue broad-spectrum antibiotics, obtain sputum cultures , obtain UA, follow blood cultures Continue IV fluids, vision has been weaned off pressor support, monitor blood pressure closely. Community-acquired Pneumonia, likely due to gram-positive bacteria Continue antibiotics as listed above, obtain sputum cultures. metabolic encephalopathy due to sepsis, rx underlying cause ESRD (end stage renal disease) Nephrology consulted, dialysis as per renal team. Hyperkalemia Persists One dose of Kayexalate 60 gm given yesterday Normal today-4.5 HTN (hypertension) hypotensive at this time, hold antihypertensive medication Dementia with Delireum continue supportive care, frequent reorientation, restraints to avoid line pulling DVT prophylaxis heparin subq Discharge planning issues-Probable discharge tomorrow or Day after. Cont ABX Subjective Date of service: 01/21/17 Principal diagnosis: Sepsis/Pneumonia Interval history: S/p ULTRASOUND AND FLUOROSCOPIC GUIDED PLACEMENT OF TUNNELED CENTRAL VENOUS CATHETER into R Int jugular vein Objective - Exam Narrative Exam: Comfortable - Constitutional Vitals: Vital Signs - 12hr 01/21/17 01/21/17 08:25 09:08 Temperature 98.9 F Pulse Rate [ 77 Left] Pulse Rate [ 77 Right Radial] Respiratory 20 Rate Blood Pressure 145/74 [Left Arm] O2 Sat by Pulse 97 Oximetry General appearance: Present: no acute distress, well-nourished - EENT Eyes: PERRL, EOM intact ENT: hearing intact, clear oral mucosa Ears: bilateral: normal - Neck Neck: supple, normal ROM - Respiratory Respiratory effort: normal Respiratory: bilateral: CTA - Breasts Breasts: normal - Cardiovascular Rhythm: regular Heart Sounds: Present: S1 & S2. Absent: gallop, rub Extremities: pulses intact, No edema, normal color, Full ROM - Gastrointestinal General gastrointestinal: Present: soft, non-tender, non-distended, normal bowel sounds - Genitourinary Male genitourinary: normal - Integumentary Integumentary: clear, warm, dry - Musculoskeletal Musculoskeletal: 1, strength equal bilaterally - Neurologic Neurologic: moves all extremities - Psychiatric Psychiatric: memory intact, appropriate mood/affect, intact judgment & insight - Labs CBC & Chem 7: 01/21/17 Unknown 01/21/17 Unknown Labs: Abnormal lab results 01/20/17 01/21/17 01/21/17 Range/Units 23:21 14:30 14:30 RBC (3.65-5.03) M/mm3 Hgb (11.8-15.2) gm/dl Hct (35.5-45.6) % MCV (84-94) fl RDW (13.2-15.2) % Seg Neuts % (Manual) (40.0-70.0) % Lymphocytes % (Manual) (13.4-35.0) % Lymphocytes # (Manual) (1.2-5.4) K/mm3 Potassium 5.2 H (3.6-5.0) mmol/L Chloride 94.4 L (98-107) mmol/L BUN 33 H (9-20) mg/dL Creatinine 14.2 H (0.8-1.5) mg/dL Glucose 104 H (75-100) mg/dL Phosphorus 4.80 H (2.5-4.5) mg/dL Albumin 3.2 L (3.9-5) g/dL PTH Intact 1054 H (15-65) pg/mL 01/21/17 01/21/17 Range/Units Unknown Unknown RBC 3.51 L (3.65-5.03) M/mm3 Hgb 11.1 L (11.8-15.2) gm/dl Hct 34.1 L (35.5-45.6) % MCV 97 H (84-94) fl RDW 18.4 H (13.2-15.2) % Seg Neuts % (Manual) 94.0 H (40.0-70.0) % Lymphocytes % (Manual) 4.0 L (13.4-35.0) % Lymphocytes # (Manual) 0.3 L (1.2-5.4) K/mm3 Potassium 5.5 H (3.6-5.0) mmol/L Chloride 94.9 L (98-107) mmol/L BUN 29 H (9-20) mg/dL Creatinine 13.4 H (0.8-1.5) mg/dL Glucose 134 H (75-100) mg/dL Phosphorus (2.5-4.5) mg/dL Albumin (3.9-5) g/dL PTH Intact (15-65) pg/mL
[2017-01-21] MEDS ORDERED: RENVELA PO SCH (16:30)
[2017-01-21] MEDS: RENVELA PO SCH (16:38)
[2017-01-22] MEDS: RENVELA PO SCH ×3 (08:36→16:28)
--- NOTE | 2017-01-22 09:01 | Progress Note ---
Assessment and Plan - Patient Problems (1) ESRD (end stage renal disease) Current Visit: Yes Status: Chronic Plan to address problem: pt was seen and examined during HD around 10.25AM. BP- 128/69, P-86, afebrile. Tolerating UF. Reported to have difficulty in cannulation of AV access in left arm. Pt is followed by in [facility] in [place]. Noted high PTH- Hectorol per protocol. K high- advised pt on low K diet. (2) HTN (hypertension) Current Visit: Yes Status: Chronic Qualifiers: Hypertension type: H (3) Secondary hyperparathyroidism Current Visit: Yes Status: Chronic (4) Anemia in CKD (chronic kidney disease) Current Visit: Yes Status: Chronic Qualifiers: Chronic kidney disease stage: C Subjective Date of service: 01/22/17 Principal diagnosis: Sepsis/Pneumonia Interval history: pt is alert, oriented, denies CP or SOB Objective - Vital Signs Vital signs: Vital Signs - 12hr 01/22/17 01/22/17 01/22/17 00:00 04:00 08:39 Temperature 98.7 F 98.3 F Pulse Rate [ 96 H 92 H Left] Pulse Rate [ 96 H 92 H Right Radial] Respiratory 16 16 20 Rate Blood Pressure 138/80 156/88 [Left Arm] O2 Sat by Pulse 96 99 Oximetry - General Appearance General appearance: well-developed EENT: mucous membranes moist Neck: no JVD Respiratory: Present: Decreased Breath Sounds Cardiology: regular Gastrointestinal: normoactive bowel sounds Neurologic: alert and oriented x3 Psychiatric: mood/affect appropriate, cooperative - Lab 01/21/17 Unknown 01/21/17 Unknown Most recent lab results Calcium 9.8 mg/dL (8.4-10.2) 01/21/17 Unknown Phosphorus 4.80 mg/dL (2.5-4.5) H 01/21/17 14:30
[2017-01-22] MEDS ORDERED: ZEMPLAR IV SCH (11:00)
[2017-01-22] MEDS ORDERED: NACL 0.9 (PRIMING MACHINE ONLY DIALYSIS) MC ONE (11:04)
[2017-01-22] MEDS: PERCOCET 5/325 PO PRN (15:07)
[2017-01-22] MEDS: DELTASONE PO SCH (15:53)
[2017-01-22] MEDS: NEURONTIN PO SCH (15:54)
[2017-01-22] MEDS: PEPCID PO SCH (15:54)
[2017-01-22] MEDS ORDERED: VANCOMYCIN 1,250 MG in NACL 0.9% 250ML 250 ML IV ONE (16:00)
[2017-01-22 16:06] LABS: BUN/Creatinine Ratio 1.33; Calcium 8.9 mg/dL (8.4-10.2); Chloride 93.3 mmol/L (98-107); Potassium 3.8 mmol/L (3.6-5.0)
--- NOTE | 2017-01-22 16:45 | Discharge Summary ---
Providers - Providers Date of Admission: 01/18/17 17:59 Attending physician: NITA SCOTT MD 01/19/17 11:09 Consult to Physician [CONS] Routine Consulting Provider: RICARDO KURTZ Reason For Exam: esrd, hyperkalemia Place consult to:: Dr Hayes's Office Notified:: Sujata Was contact made?: Yes Time called:: 13:11 PICC Line Insertion [Consult to PICC Line RN] [CONS] Stat Reason For Exam: picc line placement Type Line:: PICC 01/19/17 12:05 Consult to Interventional Radiology [CONS] Urgent Consulting Provider: TATE DIALLO Reason For Exam: PICC line placement Place consult to:: Dr Diallo Notified:: Jacob Phone number called:: [phone] Was contact made?: Yes If yes, spoke with:: Jacob Time called:: 12:10 Primary care physician: TATE RONQUILLO Hospitalization Condition: Fair Hospital course: 61 YO Male with HTN, CKD 4, Obesity brought by family for progressive fever, and confusion, for 1 day. Patient was found to have septic shock/severe sepsis. he received IV abx, IVF and pressors. He clinically improved, and he was weaned off pressors. He was treated with HD per nephrology. He clinically improved and was dc home with a course of abx Discharge Diagnosis Sepstic shock/severe sepsis Community-acquired Pneumonia, likely due to gram-positive bacteria metabolic encephalopathy ESRD (end stage renal disease) Hyperkalemia HTN (hypertension) Dementia with Delireum Disposition: [id number]-06 HOME UNDER HOME [facility] Time spent for discharge: 33 minutes Core Measure Documentation - Palliative Care Palliative Care/ Comfort Measures: Not Applicable - Core Measures Any of the following diagnoses?: none Exam - Physical Exam Narrative exam: General: Patient appears well in no distress HEENT: MMM, EOMI cardiac: S1-S2 heard lungs: clear to auscultation, abdomen: soft, nontender, nondistended bowel sounds positive extremities: no edema clubbing or cyanosis Skin: no rash or lesion Neuro: no focal deficit Psych: appropriate behavior and mood, cognition intact, answers were slow and he is forgetful - Constitutional Vitals: Temp Pulse Resp BP Pulse Ox 97.2 F L 94 H 20 126/81 96 01/22/17 14:00 01/22/17 14:00 01/22/17 14:00 01/22/17 14:00 01/22/17 08:29 Plan Follow up with: TATE RONQUILLO MD [Primary Care Provider] - 3-5 Days Prescriptions: Levofloxacin [Levaquin TAB] 500 mg PO Q48H #3 tablet
[2017-01-22 17:13] VITALS: BP 133/76
[2017-01-22] MEDS ORDERED: TRIPLE ANTIBIOTIC TP ONE (17:34)
[2017-01-22] MEDS ORDERED: FLUSH HEPARIN IV ONE (17:35)
== END 2017-01-22 19:45 | disposition home health service (06) | DRG 871 ==
LOC: ED 16:19 → CC1 17:59 → 3A 01-19 13:52
PROVIDERS: ADMIT Internal Medicine; ATTEND Internal Medicine
PROC: 02H633Z Insertion of Infusion Device into Right Atrium, Percutaneous Approach (ICD-10-PCS; principal; 2017-01-18)
PROC: B5131ZA Fluoroscopy of Right Jugular Veins using Low Osmolar Contrast, Guidance (ICD-10-PCS; 2017-01-18)
PROC: 5A1D60Z (ICD-10-PCS; 2017-01-18)
DX: A41.51 Sepsis due to Escherichia coli [E. coli] (principal); N18.6 End stage renal disease; J15.9 Unspecified bacterial pneumonia; G93.41 Metabolic encephalopathy; R65.21 Severe sepsis with septic shock; E87.5 Hyperkalemia; E66.9 Obesity, unspecified; F03.90 Unspecified dementia, unspecified severity, without behavioral disturbance, psychotic disturbance, mood disturbance, and anxiety; K57.90 Diverticulosis of intestine, part unspecified, without perforation or abscess without bleeding; D63.1 Anemia in chronic kidney disease; Z88.8 Allergy status to other drugs, medicaments and biological substances; Z83.3 Family history of diabetes mellitus; Z82.49 Family history of ischemic heart disease and other diseases of the circulatory system; Z68.35 Body mass index [BMI] 35.0-35.9, adult; Z99.2 Dependence on renal dialysis
CPT/HCPCS: 36415; 36558; 71010; 76937; 77001; 80048; 80053; 80202; 82140; 82805; 83970; 84100; 84132; 85007; 85025; 85027; 85610; 85652; 86140; 86850; 86900; 86901; 87040; 93005; 93010; 94760; 96361; 96365; 96366; 96367; A6250; A9270-GY; C1751; J0610; J0690; J1644; J2250; J2543; J3010; J3370; J7030; J7040; J7050; J7512

== ENCOUNTER 2017-01-23 19:06 | Inpatient (IN) | payer MEDICARE, OTHER ==
[2017-01-23] MEDS ORDERED: NACL 0.9% 250ML 250 ML IV ONE ×2 (20:16→22:02)
[2017-01-23] MEDS ORDERED: TYLENOL PO ONE (20:21)
[2017-01-23] MEDS ORDERED: ZOSYN/NS 4.5GM/100ML 4.5 GM/100 ML VIAL IV ONE (20:52)
[2017-01-23] MEDS ORDERED: VANCOMYCIN/NS 1 GM/250 ML 1 GM/250 ML BAG IV ONE (21:04)
[2017-01-23 21:24] LABS: Hematocrit 38.4 % (35.5-45.6); Hemoglobin 12.7 gm/dl (11.8-15.2); Mean Corpuscular HGB Conc 33 % (32-34); Mean Corpuscular Hemoglobin 32 pg (28-32); Mean Corpuscular Volume 98 fl (84-94); Platelet Count 117 K/mm3 (140-440); Red Blood Count 3.93 M/mm3 (3.65-5.03); Red Cell Distribution Width 18.5 % (13.2-15.2); White Blood Count 10.7 K/mm3 (4.5-11.0)
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
[2017-01-23 21:39] LABS: BUN/Creatinine Ratio 1.96; Calcium 9.5 mg/dL (8.4-10.2); Chloride 91.3 mmol/L (98-107); Potassium 4.3 mmol/L (3.6-5.0)
--- NOTE | 2017-01-23 21:46 | XRay Report ---
FINAL REPORT EXAM: XR CHEST 1V AP HISTORY: PNEUMONIA; weakness TECHNIQUE: upright single view chest PRIORS: None. FINDINGS: Cardiac and mediastinal contours are unremarkable. No focal pulmonary infiltrate is identified. No pleural fluid collection seen. Pulmonary vasculature is unremarkable. IMPRESSION: Negative single-view chest
[2017-01-23 22:00] LABS: Basophils % (Manual) 0 % (0.0-1.8); Blastocytes % (Manual) 0 %; Eosinophils % (Manual) 0 % (0.0-4.3)
[2017-01-23 22:01] LABS: Anisocytosis 1+; Diff Status Complete; Platelet Estimate Consistent w Auto; Polychromasia 1+; Stomatocytes 1+
[2017-01-24] MEDS ORDERED: TYLENOL PO PRN (00:45)
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
[2017-01-24] MEDS ORDERED: ZOSYN/NS 4.5GM/100ML 4.5 GM/100 ML VIAL IV SCH (06:00)
[2017-01-24] MEDS ORDERED: ULTRAM ONE (06:44)
[2017-01-24] MEDS: ULTRAM PO PRN ×2 (06:48→18:07)
[2017-01-24] MEDS: ZOSYN/NS 2.25 GM/50ML 2.25 GM/50 ML BAG IV SCH ×2 (06:48→17:00)
[2017-01-24] MEDS: ZOFRAN IV PRN (07:27)
--- NOTE | 2017-01-24 07:55 | Admit Criteria Form ---
Admission Criteria Documentation: SEPSIS and OTHER FEBRILE ILLNESS, W/O FOCAL INFECTION Clinical Indications for Admission to Inpatient Care ( Place 'X' for any and all applicable criteria): Admission is indicated for ANY ONE of the following (1)(2)(3)(4): [ ] I. Bacteremia [ ]II. Suspected or identified specific infection requiring hospitalization (eg, meningitis, endocarditis) [ ]III. Hemodynamic instability [ ]IV. Altered mental status [ ]V. Failure or unavailability of outpatient antimicrobial treatment [ ]. Hypoxemia [ ]VII. Seizures [ ]VIII. High-risk febrile neutropenia [ ]IX. Need for parenteral antibiotic in patient who is likely to abuse vascular access device (eg, injection drug user) [A](7) [ ]X. Temperature greater than 104.9 degrees F (40.5 degrees C) (oral) [X ]XI. Inpatient admission required rather than observation care because of ANY ONE of the following: [ ]1) Specific infection identified that is too severe for outpatient treatment or observation care trial [ ]2) Metabolic disorder (eg, hypoglycemia, hyperglycemia, metabolic acidosis) that is severe or persistent [ ]3) Temperature greater than 103.1 degrees F (39.5 degrees C) ( oral) that is not responsive to observation care treatment [ ]4) IV fluid to replace significant ongoing (eg, for over 24 hours) losses (> 3 L/m2 per day) [ ]5) Supplemental oxygen or respiratory treatments for over 24 hours that is performable only in acute inpatient setting [ ]6) Parenteral nutrition regimen need that must be implemented on inpatient basis [ ]7) Strict or protective (eg, laminar flow) isolation [X ]8) Other condition, treatment or monitoring requiring inpatient admission Extended stay beyond goal length of stay may be needed for(1)(3) [ ]a) Sepsis or septic shock(22) [ ]b) Positive blood cultures [ ]c) Insufficient oral intake [ ]d) High-risk febrile neutropenia(29)(30) [ ]e) Continued fever and clinical instability [ ]f) Clinically active comorbid illness (e.g,heart failure, renal failure , diabetes) The original [facility] [employer] content created by Delisa Florez has been revised. The portions of the content which have been revised are identified through the use of italic text or in bold, and Delisa Florez has neither reviewed nor approved the modified material. All other unmodified content is copyright [facility]. Please see references footnoted in the original [facility] edition 2016 Admission Criteria Met: Yes
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
[2017-01-24] MEDS ORDERED: HEPARIN SUB-Q SCH (10:00)
[2017-01-24] MEDS: MORPHINE IV PRN (10:35)
[2017-01-24] MEDS ORDERED: NACL 0.9% 100 ML IV PRN ×2 (11:38→18:44)
[2017-01-24 12:28] LABS: BUN/Creatinine Ratio 2.42; Calcium 9.5 mg/dL (8.4-10.2)
[2017-01-24 12:29] LABS: Chloride 89.6 mmol/L (98-107); Potassium 5.5 mmol/L (3.6-5.0)
--- NOTE | 2017-01-24 12:56 | Event Note ---
Date: 01/24/17 PATIENT seen and examined, still tachycardia and dyspenic although reports some improvement in the latter. WILL CHECK V/Q to eval for PE. also obtain CT imaging as patient with complaints of left cva tenderness, Hyperkalemia- Nephrology following and patient is for HD. Pain control med ordered.
[2017-01-24] MEDS ORDERED: NACL 0.9 (PRIMING MACHINE ONLY DIALYSIS) MC ONE (15:17)
--- NOTE | 2017-01-24 17:28 | Cat Scan Report ---
FINAL REPORT EXAM: CT ABDOMEN PELVIS WO CON HISTORY: left CVA tenderness TECHNIQUE: Serial axial images through the abdomen and pelvis with coronal and sagittal reconstruction. PRIORS: None. FINDINGS: There is atelectasis in the lung bases. No pleural effusion is seen. Multiple healing right rib fractures are noted. Gallbladder is surgically absent. No focal hepatic lesion is identified. Pancreas appears normal. Spleen appears normal. Adrenal glands appear normal. Kidneys are absent. Linear densities are seen in the renal fossae CT with multiple punctate calcifications. Atherosclerotic changes are seen in the aorta. No aneurysmal dilatation is seen. Bladder is decompressed. Moderate amount of stool is seen in the rectal vault. Scattered diverticula are seen arising from the colon. No free fluid. There are degenerative changes in the spine. IMPRESSION: 1. Kidneys are absent. There are currently no studies available for direct comparison. 2. Diverticulosis. 3. No free fluid is seen in the abdomen or pelvis. 4. Bladder is decompressed. Bladder is incompletely evaluated this study. 5. Multiple healing right rib fractures are noted.
[2017-01-24] MEDS ORDERED: HEPARIN 10,000 UNITS/10 ML IV ONE (18:56)
[2017-01-24] MEDS ORDERED: HEPARIN/ 0.45% NACL-25,000 UNIT/500 ML 25,000 UNIT/500 ML BAG IV SCH (19:00)
[2017-01-24] MEDS ORDERED: NACL ONE (19:12)
--- NOTE | 2017-01-24 20:37 | Cat Scan Report ---
FINAL REPORT EXAM: CT ANGIO CHEST HISTORY: eval for PE TECHNIQUE: Serial axial images through the chest during intravenous administration 100 milliliters Omnipaque 350 contrast with coronal, sagittal and oblique reconstruction PRIORS: None. FINDINGS: Areas of increased opacity are seen in the peripheral margins of the lungs, bilaterally. No pleural effusion is seen. No mediastinal adenopathy is identified. The heart measures approximately 13.5 centimeters in length. No abnormal filling defects are identified in the pulmonary arteries. No gross abnormality is seen in the visualized portion of the abdomen. There are surgical clips near the diaphragmatic hiatus. There are healing fractures of the right 4th, 5th, 6th, 7th, and 8th ribs. IMPRESSION: 1. No definite acute pulmonary embolism is identified. 2. Areas of increased opacity are seen in the peripheral margins of the lungs, bilaterally. This could be secondary to atelectasis or scarring, but possibility of infection is not excluded. 3. Multiple healing right rib fractures are noted.
[2017-01-24 21:08] LABS: Hematocrit 33.9 % (35.5-45.6); Hemoglobin 10.8 gm/dl (11.8-15.2)
[2017-01-24 21:18] LABS: INR 1.34 (0.87-1.13)
[2017-01-24 21:19] LABS: Partial Thromboplastin Time 39.3 Sec. (24.2-36.6)
[2017-01-25] MEDS: ZOSYN/NS 2.25 GM/50ML 2.25 GM/50 ML BAG IV SCH ×4 (00:22→22:02)
[2017-01-25 01:30] LABS: Creatine Kinase MB 1.2 ng/mL (0.0-4.0)
[2017-01-25 01:31] LABS: Creatine Kinase 31 units/L (55-170)
[2017-01-25 03:12] LABS: Cholesterol 104 mg/dL (50-199); HDL Cholesterol 8 mg/dL (40-59); LDL Cholesterol,Direct TNR mg/dL (50-130); Triglycerides 416 mg/dL (2-149)
[2017-01-25 06:27] LABS: Hematocrit 36.6 % (35.5-45.6); Hemoglobin 11.6 gm/dl (11.8-15.2); Mean Corpuscular HGB Conc 32 % (32-34); Mean Corpuscular Hemoglobin 32 pg (28-32); Mean Corpuscular Volume 99 fl (84-94); Platelet Count 229 K/mm3 (140-440); Red Blood Count 3.69 M/mm3 (3.65-5.03); Red Cell Distribution Width 19.2 % (13.2-15.2)
[2017-01-25 06:51] LABS: Creatine Kinase MB 1.4 ng/mL (0.0-4.0)
[2017-01-25 07:16] LABS: BUN/Creatinine Ratio 2.18; Calcium 9.7 mg/dL (8.4-10.2); Chloride 89.7 mmol/L (98-107)
[2017-01-25 07:32] LABS: Potassium 5.6 mmol/L (3.6-5.0)
--- NOTE | 2017-01-25 08:47 | Nuclear Medicine Report ---
LUNG SCAN, VENTILATION AND PERFUSION: History: Chest pain, shortness of breath. Technique: 5mci of Tc99m MAA was infused for the perfusion images. 15mci XE 133 gas was inhaled for the ventilatory images. Correlation is made with a chest x-ray dated 01/23/17. Findings: Inhalation of Xenon gas demonstrates a normal distribution of the activity throughout both lungs. The wash out phases show no focal retention of activity. After injection of Technetium 99m macroaggregated albumin gamma camera imaging of the lungs in multiple projections demonstrates normal pulmonary contours with a homogeneous distribution of activity. No focal areas of perfusion deficiency are identified. IMPRESSION: Low probability for pulmonary embolus.
[2017-01-25] MEDS ORDERED: HEPARIN 10,000 UNITS/10 ML IV NR (12:00)
--- NOTE | 2017-01-25 13:36 | Progress Note ---
Assessment and Plan Impression: * End stage renal disease on HD * Fever * Tachycardia * Hx of CAP * Anemia secondary to ESRD * Secondary hyperparathyroidism Plan: * Hemodialysis TTHSAT. UF as tolerated * Empiric abx per primary team - blood cx are pending * CXR unremarkable; no pe on CTA * Consider ID consult * Epogen for goal Hb 10-12 * Renal diet Subjective Date of service: 02/01/17 Principal diagnosis: esrd Interval history: resting well in bed today Objective - Exam Narrative Exam: Gen: Lethargic HEENT: NCAT Chest: symmetric Lungs: CTA CV: tachy, regular Abdomen: soft, NTND, NABS Ext: no edema - Vital Signs Vital signs: Vital Signs - 12hr 01/25/17 01/25/17 06:54 09:38 Temperature 98.9 F Pulse Rate 120 H Pulse Rate [ 110 H Right Radial] Respiratory 20 Rate Blood Pressure 127/72 [Right Arm] O2 Sat by Pulse 96 Oximetry - Lab 01/25/17 05:45 01/25/17 05:45 Most recent lab results Calcium 9.7 mg/dL (8.4-10.2) 01/25/17 05:45
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
[2017-01-25] MEDS ORDERED: NACL 0.9% 1000 ML 2,000 ML ONE (16:33)
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
[2017-01-25] MEDS: ZOFRAN IV PRN (20:19)
[2017-01-25] MEDS: MORPHINE IV PRN (20:21)
[2017-01-26] MEDS: ZOSYN/NS 2.25 GM/50ML 2.25 GM/50 ML BAG IV SCH ×3 (06:02→21:51)
[2017-01-26 07:13] LABS: BUN/Creatinine Ratio 1.85; Calcium 9.7 mg/dL (8.4-10.2); Chloride 91.5 mmol/L (98-107)
--- NOTE | 2017-01-26 11:55 | Progress Note ---
Assessment and Plan Assessment: Nausea & vomiting - abdomen/pelvis CT with diverticulosis and multiple healing right rib fractures, NAF. Fever Elevated troponins - ECG with NAF; pt denies chest pain; flat. Sinus tachycardia - telemetry reviewed with no evidence of cardiac arrhythmia; physiologic secondary to suspected infection, fever, and anemia. Elevated DDimer - V/Q scan low probability for PE. HTN ESRD on HD - TTHSAT Hyponatremia / hyperkalemia H/o CAP Anemia of CKD Plan: Echo reviewed - EF 50 - 55%, abnormal diastolic function, trace TR. Initiate toprol XL, 25mg daily, for HR and BP optimization. Elevated troponins currently nonspecific in setting of ESRD, ST, and ? infectious process. No plans for any further cardiac testing at this time. Consider OP stress MPI for risk stratification. Will see PRN. Recommend follow up in our office with Candace Pinon NP, within 2 weeks of hospital discharge ([phone]). Assessment and plan reviewed with pt at bedside. The patient has been seen in conjunction with Dr. Rodríguez who agrees with the assessment and plan of care. Subjective Date of service: 01/26/17 Principal diagnosis: esrd Interval history: Pt resting comfortably, denies any complaints. Remains in ST on tele, BPs WNL. Objective Last Vital Signs Temp 98.2 F 01/26/17 07:45 Pulse 116 H 01/26/17 07:45 Resp 20 01/26/17 07:45 BP 142/67 01/26/17 07:45 Pulse Ox 96 01/26/17 08:56 - Physical Examination General: Appears Well, No Apparent Distress HEENT: Positive: PERRL, Normocephaly, Mucus Membranes Moist Neck: Positive: neck supple, trachea midline Cardiac: Positive: Regular Rhythm, S1/S2, Tachycardia Lungs: Positive: clear to auscultation Neuro: Positive: Grossly Intact, Cranial Nerve 2-12 Intact Abdomen: Positive: Unremarkable, Soft, Active Bowel Sounds Skin: Positive: Clear. Negative: Rash, Wound Musculoskeletal: No Fluid Collection, No Pain, Normal Range of Motion Extremities: Present: upper extr. pulses, lower extr. pulses. Absent: edema - Labs and Meds Comprehensive Metabolic Panel 01/26/17 Range/Units 05:14 Sodium 133 L (137-145) mmol/L Potassium 5.0 (3.6-5.0) mmol/L Chloride 91.5 L (98-107) mmol/L Carbon Dioxide 21 L (22-30) mmol/L BUN 23 H (9-20) mg/dL Creatinine 12.4 H (0.8-1.5) mg/dL Glucose 84 (75-100) mg/dL Calcium 9.7 (8.4-10.2) mg/dL - Imaging and Cardiology EKG: report reviewed, image reviewed - Telemetry EKG Rhythm: Sinus Tachycardia - EKG Sinus rhythms and dysrhythmias: sinus tachycardia
--- NOTE | 2017-01-26 12:31 | Progress Note ---
Assessment and Plan Assessment and plan: SIRS On empiric antibiotics with Zosyn iv. Blood cultures x 4 have been negative. ESRD. hemodialysis managed by Nephrology. Elevated Troponin. On Heparin drip. Hyperkalemia. This is now resolved. Potassium 5.0 today. Was 5.6 yesterday. Gastroenteritis History of kidney cancer s/p bilateral nephrectomy Acute encephalopathy, improving Acute gastroenteritis. Hypertension DVT prophylaxis. On Heparin drip Full code status. History Interval history: feels better No fever for 2 days Hospitalist Physical - Physical exam Narrative exam: Gen Appearance: Not in acute distress, HEENT: normocephalic, atraumatic Neck: supple, no JVD Lungs: clear to auscultation bilaterally, no crackles or wheezes Heart: S1 and S2 regular, no murmurs , rubs or gallop Abdomen: Soft, non tender, non distended normal bowel sounds, Extremity: No edema, no clubbing or cyanosis Neuro : Awake,alert,oriented, moves all ext Psych : normal mood - Constitutional Vitals: Temp Pulse Resp BP Pulse Ox 98.2 F 116 H 20 142/67 96 01/26/17 07:45 01/26/17 07:45 01/26/17 07:45 01/26/17 07:45 01/26/17 08:56 Results - Labs CBC & Chem 7: 01/25/17 05:45 01/26/17 05:14 Labs: Laboratory Last Values WBC 9.0 K/mm3 (4.5-11.0) 01/25/17 05:45 RBC 3.69 M/mm3 (3.65-5.03) 01/25/17 05:45 Hgb 11.6 gm/dl (11.8-15.2) L 01/25/17 05:45 Hct 36.6 % (35.5-45.6) 01/25/17 05:45 MCV 99 fl (84-94) H 01/25/17 05:45 MCH 32 pg (28-32) 01/25/17 05:45 MCHC 32 % (32-34) 01/25/17 05:45 RDW 19.2 % (13.2-15.2) H 01/25/17 05:45 Plt Count 229 K/mm3 (140-440) 01/25/17 05:45 Add Manual Diff Complete 01/23/17 Unknown Total Counted 100 01/23/17 Unknown Seg Neutrophils % Enrollment Advisor 01/23/17 Unknown Seg Neuts % (Manual) 84.0 % (40.0-70.0) H 01/23/17 Unknown Band Neutrophils % 9.0 % 01/23/17 Unknown Lymphocytes % (Manual) 4.0 % (13.4-35.0) L 01/23/17 Unknown Reactive Lymphs % (Man) 1.0 % 01/23/17 Unknown Monocytes % (Manual) 2.0 % (0.0-7.3) 01/23/17 Unknown Eosinophils % (Manual) 0 % (0.0-4.3) 01/23/17 Unknown Basophils % (Manual) 0 % (0.0-1.8) 01/23/17 Unknown Metamyelocytes % 0 % 01/23/17 Unknown Myelocytes % 0 % 01/23/17 Unknown Promyelocytes % 0 % 01/23/17 Unknown Blast Cells % 0 % 01/23/17 Unknown Nucleated RBC % Not Reportable 01/23/17 Unknown Seg Neutrophils # Man 9.0 K/mm3 (1.8-7.7) H 01/23/17 Unknown Band Neutrophils # 1.0 K/mm3 01/23/17 Unknown Lymphocytes # (Manual) 0.4 K/mm3 (1.2-5.4) L 01/23/17 Unknown Abs React Lymphs (Man) 0.1 K/mm3 01/23/17 Unknown Monocytes # (Manual) 0.2 K/mm3 (0.0-0.8) 01/23/17 Unknown Eosinophils # (Manual) 0.0 K/mm3 (0.0-0.4) 01/23/17 Unknown Basophils # (Manual) 0.0 K/mm3 (0.0-0.1) 01/23/17 Unknown Metamyelocytes # 0.0 K/mm3 01/23/17 Unknown Myelocytes # 0.0 K/mm3 01/23/17 Unknown Promyelocytes # 0.0 K/mm3 01/23/17 Unknown Blast Cells # 0.0 K/mm3 01/23/17 Unknown WBC Morphology Not Reportable 01/23/17 Unknown Hypersegmented Neuts Not Reportable 01/23/17 Unknown Hyposegmented Neuts Not Reportable 01/23/17 Unknown Hypogranular Neuts Not Reportable 01/23/17 Unknown Smudge Cells Not Reportable 01/23/17 Unknown Toxic Granulation Not Reportable 01/23/17 Unknown Toxic Vacuolation Not Reportable 01/23/17 Unknown Dohle Bodies Not Reportable 01/23/17 Unknown Pelger-Huet Anomaly Not Reportable 01/23/17 Unknown Lanny Rods Not Reportable 01/23/17 Unknown Platelet Estimate Consistent w auto 01/23/17 Unknown Clumped Platelets Not Reportable 01/23/17 Unknown Plt Clumps, EDTA Not Reportable 01/23/17 Unknown Large Platelets Not Reportable 01/23/17 Unknown Giant Platelets Not Reportable 01/23/17 Unknown Platelet Satelliting Not Reportable 01/23/17 Unknown Plt Morphology Comment Not Reportable 01/23/17 Unknown RBC Morphology Not Reportable 01/23/17 Unknown Dimorphic RBCs Not Reportable 01/23/17 Unknown Polychromasia 1+ 01/23/17 Unknown Hypochromasia Not Reportable 01/23/17 Unknown Poikilocytosis Not Reportable 01/23/17 Unknown Anisocytosis 1+ 01/23/17 Unknown Microcytosis Not Reportable 01/23/17 Unknown Macrocytosis Not Reportable 01/23/17 Unknown Spherocytes Not Reportable 01/23/17 Unknown Pappenheimer Bodies Not Reportable 01/23/17 Unknown Sickle Cells Not Reportable 01/23/17 Unknown Target Cells Not Reportable 01/23/17 Unknown Tear Drop Cells Not Reportable 01/23/17 Unknown Ovalocytes Not Reportable 01/23/17 Unknown Stomatocytes 1+ 01/23/17 Unknown Helmet Cells Not Reportable 01/23/17 Unknown Alvarez-[place] Bodies Not Reportable 01/23/17 Unknown [place] Rings Not Reportable 01/23/17 Unknown [place] Cells Not Reportable 01/23/17 Unknown Bite Cells Not Reportable 01/23/17 Unknown Crenated Cell Not Reportable 01/23/17 Unknown Elliptocytes Not Reportable 01/23/17 Unknown Acanthocytes (Spur) Not Reportable 01/23/17 Unknown Rouleaux Not Reportable 01/23/17 Unknown Hemoglobin C Crystals Not Reportable 01/23/17 Unknown Schistocytes Not Reportable 01/23/17 Unknown Malaria parasites Not Reportable 01/23/17 Unknown Colten Bodies Not Reportable 01/23/17 Unknown Hem Pathologist Commnt No 01/23/17 Unknown PT 17.3 Sec. (12.2-14.9) H 01/24/17 20:35 INR 1.34 (0.87-1.13) H 01/24/17 20:35 APTT 39.3 Sec. (24.2-36.6) H 01/24/17 20:35 D-Dimer 4351.74 ng/mlDDU (0-234) H 01/24/17 11:55 VBG pH 7.418 (7.320-7.420) 01/23/17 Unknown Sodium 133 mmol/L (137-145) L 01/26/17 05:14 Potassium 5.0 mmol/L (3.6-5.0) 01/26/17 05:14 Chloride 91.5 mmol/L (98-107) L 01/26/17 05:14 Carbon Dioxide 21 mmol/L (22-30) L 01/26/17 05:14 Anion Gap 26 mmol/L 01/26/17 05:14 BUN 23 mg/dL (9-20) H 01/26/17 05:14 Creatinine 12.4 mg/dL (0.8-1.5) H 01/26/17 05:14 Estimated GFR 5 ml/min 01/26/17 05:14 BUN/Creatinine Ratio 1.85 % 01/26/17 05:14 Glucose 84 mg/dL (75-100) 01/26/17 05:14 Lactic Acid 1.40 mmol/L (0.7-2.0) 01/23/17 Unknown Calcium 9.7 mg/dL (8.4-10.2) 01/26/17 05:14 Total Creatine Kinase 45 units/L (55-170) L 01/25/17 05:45 CK-MB (CK-2) 1.4 ng/mL (0.0-4.0) 01/25/17 05:45 CK-MB (CK-2) Rel Index 3.1 (0-4) 01/25/17 05:45 Troponin T 0.362 ng/mL (0.00-0.029) H* 01/25/17 05:45 Triglycerides 416 mg/dL (2-149) H 01/25/17 00:43 Cholesterol 104 mg/dL (50-199) 01/25/17 00:43 LDL Cholesterol Direct TNR 01/25/17 00:43 HDL Cholesterol 8 mg/dL (40-59) L 01/25/17 00:43 Cholesterol/HDL Ratio 13.00 % 01/25/17 00:43 TSH 1.120 mlU/mL (0.270-4.200) 01/23/17 Unknown Free T4 1.26 ng/dL (0.76-1.46) 01/23/17 Unknown
--- NOTE | 2017-01-26 12:46 | Progress Note ---
Assessment and Plan Impression: * End stage renal disease on HD * Fever * Tachycardia * Hx of CAP * Anemia secondary to ESRD * Secondary hyperparathyroidism Plan: * Hemodialysis TTHSAT. UF as tolerated * Empiric abx per primary team - blood cx are pending * CXR unremarkable; no pe on CTA * Consider ID consult * Epogen for goal Hb 10-12 * Renal diet Subjective Date of service: 01/26/17 Principal diagnosis: esrd Interval history: resting well in bed today Objective - Exam Narrative Exam: Gen: Lethargic HEENT: NCAT Chest: symmetric Lungs: CTA CV: tachy, regular Abdomen: soft, NTND, NABS Ext: no edema - Vital Signs Vital signs: Vital Signs - 12hr 01/26/17 01/26/17 01/26/17 04:00 07:45 08:56 Temperature 98.3 F 98.2 F Pulse Rate [ 113 H 116 H Right Radial] Respiratory 18 20 Rate Blood Pressure 123/67 142/67 [Right Arm] O2 Sat by Pulse 98 96 96 Oximetry - Lab 01/25/17 05:45 01/26/17 05:14 Most recent lab results Calcium 9.7 mg/dL (8.4-10.2) 01/26/17 05:14
[2017-01-26] MEDS: TOPROL XL PO SCH (14:05)
[2017-01-26] MEDS: HEPARIN/ 0.45% NACL-25,000 UNIT/500 ML 25,000 UNITS/500 ML BAG IV SCH ×2 (15:05→22:35)
[2017-01-27] MEDS: MORPHINE IV PRN ×2 (00:56→22:37)
[2017-01-27] MEDS: ZOSYN/NS 2.25 GM/50ML 2.25 GM/50 ML BAG IV SCH ×3 (05:58→22:36)
[2017-01-27] MEDS ORDERED: ULTRAM PO PRN (09:54)
[2017-01-27] MEDS ORDERED: NORMODYNE PO SCH (10:00)
--- NOTE | 2017-01-27 10:47 | Progress Note ---
Assessment and Plan Assessment and plan: SIRS On empiric antibiotics with Zosyn iv. Blood cultures x 4 have been negative. Fever. Blood cultures have been negative. He has had recurrent fevers and has had 3 admissions over the past few months. He was just discharged home for sepsis with septic shock 2 days before he was readmitted again this time. He also has a recent admission at [facility] for similar presentation. Consult ID physician. ESRD. hemodialysis managed by Nephrology. Elevated Troponin, non-specific, may be due to ESRD as per cardiology. No Further cardiac workup as per cardiology. Discontinue heparin drip. Hyperkalemia, mild. Potassium 5.4. recheck in morning. Gastroenteritis History of kidney cancer s/p bilateral nephrectomy Acute encephalopathy, improving. He is awake,alert,oriented Acute gastroenteritis. Hypertension DVT prophylaxis. On Heparin drip Full code status. History Interval history: feels better Patient has had recurrent fever with 3 admissions past few months Hospitalist Physical - Physical exam Narrative exam: Gen Appearance: Not in acute distress,obese HEENT: normocephalic, atraumatic Neck: supple, no JVD Lungs: clear to auscultation bilaterally, no crackles or wheezes Heart: S1 and S2 regular, no murmurs , rubs or gallop Abdomen: Soft, non tender, non distended normal bowel sounds, Extremity: No edema, no clubbing or cyanosis Neuro : Awake,alert,oriented, moves all ext Psych : normal mood - Constitutional Vitals: Temp Pulse Resp BP Pulse Ox 97.6 F 79 16 167/90 95 01/27/17 08:00 01/27/17 08:00 01/27/17 08:00 01/27/17 08:00 01/27/17 08:00 General appearance: Present: no acute distress Results - Labs CBC & Chem 7: 01/27/17 10:26 01/27/17 10:26 Labs: Laboratory Last Values WBC 9.0 K/mm3 (4.5-11.0) 01/25/17 05:45 RBC 3.69 M/mm3 (3.65-5.03) 01/25/17 05:45 Hgb 11.6 gm/dl (11.8-15.2) L 01/25/17 05:45 Hct 36.6 % (35.5-45.6) 01/25/17 05:45 MCV 99 fl (84-94) H 01/25/17 05:45 MCH 32 pg (28-32) 01/25/17 05:45 MCHC 32 % (32-34) 01/25/17 05:45 RDW 19.2 % (13.2-15.2) H 01/25/17 05:45 Plt Count 229 K/mm3 (140-440) 01/25/17 05:45 Add Manual Diff Complete 01/23/17 Unknown Total Counted 100 01/23/17 Unknown Seg Neutrophils % Inventory Assistant 01/23/17 Unknown Seg Neuts % (Manual) 84.0 % (40.0-70.0) H 01/23/17 Unknown Band Neutrophils % 9.0 % 01/23/17 Unknown Lymphocytes % (Manual) 4.0 % (13.4-35.0) L 01/23/17 Unknown Reactive Lymphs % (Man) 1.0 % 01/23/17 Unknown Monocytes % (Manual) 2.0 % (0.0-7.3) 01/23/17 Unknown Eosinophils % (Manual) 0 % (0.0-4.3) 01/23/17 Unknown Basophils % (Manual) 0 % (0.0-1.8) 01/23/17 Unknown Metamyelocytes % 0 % 01/23/17 Unknown Myelocytes % 0 % 01/23/17 Unknown Promyelocytes % 0 % 01/23/17 Unknown Blast Cells % 0 % 01/23/17 Unknown Nucleated RBC % Not Reportable 01/23/17 Unknown Seg Neutrophils # Man 9.0 K/mm3 (1.8-7.7) H 01/23/17 Unknown Band Neutrophils # 1.0 K/mm3 01/23/17 Unknown Lymphocytes # (Manual) 0.4 K/mm3 (1.2-5.4) L 01/23/17 Unknown Abs React Lymphs (Man) 0.1 K/mm3 01/23/17 Unknown Monocytes # (Manual) 0.2 K/mm3 (0.0-0.8) 01/23/17 Unknown Eosinophils # (Manual) 0.0 K/mm3 (0.0-0.4) 01/23/17 Unknown Basophils # (Manual) 0.0 K/mm3 (0.0-0.1) 01/23/17 Unknown Metamyelocytes # 0.0 K/mm3 01/23/17 Unknown Myelocytes # 0.0 K/mm3 01/23/17 Unknown Promyelocytes # 0.0 K/mm3 01/23/17 Unknown Blast Cells # 0.0 K/mm3 01/23/17 Unknown WBC Morphology Not Reportable 01/23/17 Unknown Hypersegmented Neuts Not Reportable 01/23/17 Unknown Hyposegmented Neuts Not Reportable 01/23/17 Unknown Hypogranular Neuts Not Reportable 01/23/17 Unknown Smudge Cells Not Reportable 01/23/17 Unknown Toxic Granulation Not Reportable 01/23/17 Unknown Toxic Vacuolation Not Reportable 01/23/17 Unknown Dohle Bodies Not Reportable 01/23/17 Unknown Pelger-Huet Anomaly Not Reportable 01/23/17 Unknown Lanny Rods Not Reportable 01/23/17 Unknown Platelet Estimate Consistent w auto 01/23/17 Unknown Clumped Platelets Not Reportable 01/23/17 Unknown Plt Clumps, EDTA Not Reportable 01/23/17 Unknown Large Platelets Not Reportable 01/23/17 Unknown Giant Platelets Not Reportable 01/23/17 Unknown Platelet Satelliting Not Reportable 01/23/17 Unknown Plt Morphology Comment Not Reportable 01/23/17 Unknown RBC Morphology Not Reportable 01/23/17 Unknown Dimorphic RBCs Not Reportable 01/23/17 Unknown Polychromasia 1+ 01/23/17 Unknown Hypochromasia Not Reportable 01/23/17 Unknown Poikilocytosis Not Reportable 01/23/17 Unknown Anisocytosis 1+ 01/23/17 Unknown Microcytosis Not Reportable 01/23/17 Unknown Macrocytosis Not Reportable 01/23/17 Unknown Spherocytes Not Reportable 01/23/17 Unknown Pappenheimer Bodies Not Reportable 01/23/17 Unknown Sickle Cells Not Reportable 01/23/17 Unknown Target Cells Not Reportable 01/23/17 Unknown Tear Drop Cells Not Reportable 01/23/17 Unknown Ovalocytes Not Reportable 01/23/17 Unknown Stomatocytes 1+ 01/23/17 Unknown Helmet Cells Not Reportable 01/23/17 Unknown Alvarez-[place] Bodies Not Reportable 01/23/17 Unknown [place] Rings Not Reportable 01/23/17 Unknown [place] Cells Not Reportable 01/23/17 Unknown Bite Cells Not Reportable 01/23/17 Unknown Crenated Cell Not Reportable 01/23/17 Unknown Elliptocytes Not Reportable 01/23/17 Unknown Acanthocytes (Spur) Not Reportable 01/23/17 Unknown Rouleaux Not Reportable 01/23/17 Unknown Hemoglobin C Crystals Not Reportable 01/23/17 Unknown Schistocytes Not Reportable 01/23/17 Unknown Malaria parasites Not Reportable 01/23/17 Unknown Colten Bodies Not Reportable 01/23/17 Unknown Hem Pathologist Commnt No 01/23/17 Unknown PT 17.3 Sec. (12.2-14.9) H 01/24/17 20:35 INR 1.34 (0.87-1.13) H 01/24/17 20:35 APTT 39.3 Sec. (24.2-36.6) H 01/24/17 20:35 D-Dimer 4351.74 ng/mlDDU (0-234) H 01/24/17 11:55 Heparin Anti-Xa Level < 0.10 U.I./ml (0.3-0.7) L 01/26/17 22:48 VBG pH 7.418 (7.320-7.420) 01/23/17 Unknown Sodium 133 mmol/L (137-145) L 01/26/17 05:14 Potassium 5.0 mmol/L (3.6-5.0) 01/26/17 05:14 Chloride 91.5 mmol/L (98-107) L 01/26/17 05:14 Carbon Dioxide 21 mmol/L (22-30) L 01/26/17 05:14 Anion Gap 26 mmol/L 01/26/17 05:14 BUN 23 mg/dL (9-20) H 01/26/17 05:14 Creatinine 12.4 mg/dL (0.8-1.5) H 01/26/17 05:14 Estimated GFR 5 ml/min 01/26/17 05:14 BUN/Creatinine Ratio 1.85 % 01/26/17 05:14 Glucose 84 mg/dL (75-100) 01/26/17 05:14 Lactic Acid 1.40 mmol/L (0.7-2.0) 01/23/17 Unknown Calcium 9.7 mg/dL (8.4-10.2) 01/26/17 05:14 Total Creatine Kinase 45 units/L (55-170) L 01/25/17 05:45 CK-MB (CK-2) 1.4 ng/mL (0.0-4.0) 01/25/17 05:45 CK-MB (CK-2) Rel Index 3.1 (0-4) 01/25/17 05:45 Troponin T 0.362 ng/mL (0.00-0.029) H* 01/25/17 05:45 Triglycerides 416 mg/dL (2-149) H 01/25/17 00:43 Cholesterol 104 mg/dL (50-199) 01/25/17 00:43 LDL Cholesterol Direct TNR 01/25/17 00:43 HDL Cholesterol 8 mg/dL (40-59) L 01/25/17 00:43 Cholesterol/HDL Ratio 13.00 % 01/25/17 00:43 TSH 1.120 mlU/mL (0.270-4.200) 01/23/17 Unknown Free T4 1.26 ng/dL (0.76-1.46) 01/23/17 Unknown
--- NOTE | 2017-01-27 10:49 | Progress Note ---
Assessment and Plan Impression: * End stage renal disease on HD * Fever * Tachycardia * Hx of CAP * Anemia secondary to ESRD * Secondary hyperparathyroidism Plan: * Hemodialysis TTHSAT. UF as tolerated * Empiric abx per primary team - blood cx are pending * CXR unremarkable; no pe on CTA * Consider ID consult * Epogen for goal Hb 10-12 * Renal diet Subjective Date of service: 01/27/17 Principal diagnosis: esrd Interval history: resting well in bed today Objective - Exam Narrative Exam: Gen: Lethargic HEENT: NCAT Chest: symmetric Lungs: CTA CV: tachy, regular Abdomen: soft, NTND, NABS Ext: no edema - Vital Signs Vital signs: Vital Signs - 12hr 01/27/17 01/27/17 01/27/17 00:56 01:03 05:37 Temperature 99.9 F H 98.4 F Pulse Rate [ 94 H 80 Right Radial] Respiratory 20 18 20 Rate Blood Pressure 142/77 162/75 [Right Arm] O2 Sat by Pulse 95 96 Oximetry 01/27/17 08:00 Temperature 97.6 F Pulse Rate [ 79 Right Radial] Respiratory 16 Rate Blood Pressure 167/90 [Right Arm] O2 Sat by Pulse 95 Oximetry - Lab 01/25/17 05:45 01/26/17 05:14 Most recent lab results Calcium 9.7 mg/dL (8.4-10.2) 01/26/17 05:14
[2017-01-27] MEDS: PROTONIX PO SCH (11:45)
[2017-01-27 11:58] LABS: Hematocrit 29.5 % (35.5-45.6); Hemoglobin 9.9 gm/dl (11.8-15.2); Mean Corpuscular HGB Conc 34 % (32-34); Mean Corpuscular Hemoglobin 32 pg (28-32); Mean Corpuscular Volume 94 fl (84-94); Platelet Count 262 K/mm3 (140-440); Red Blood Count 3.13 M/mm3 (3.65-5.03); Red Cell Distribution Width 18.3 % (13.2-15.2); White Blood Count 5.2 K/mm3 (4.5-11.0)
[2017-01-27] MEDS ORDERED: NON-FORMULARY (Sevelamer Hcl [Renagel] 2,400 MG) PO SCH (12:00)
[2017-01-27 12:17] LABS: BUN/Creatinine Ratio 1.84; Calcium 9.6 mg/dL (8.4-10.2); Chloride 91.3 mmol/L (98-107); Potassium 5.4 mmol/L (3.6-5.0)
[2017-01-27] MEDS: RENVELA PO SCH ×2 (13:15→18:13)
[2017-01-27] MEDS ORDERED: NACL 0.9 (PRIMING MACHINE ONLY DIALYSIS) MC ONE (13:34)
[2017-01-27] MEDS: TOPROL XL PO SCH (18:13)
[2017-01-27] MEDS: NORVASC PO SCH (18:13)
[2017-01-27] MEDS ORDERED: NON-FORMULARY (Rosuvastatin (Nf) 10 MG) PO SCH (22:00)
[2017-01-27] MEDS: NEURONTIN PO SCH (22:39)
[2017-01-27] MEDS: DELTASONE PO SCH (22:39)
[2017-01-28] MEDS: ZOSYN/NS 2.25 GM/50ML 2.25 GM/50 ML BAG IV SCH (06:51)
[2017-01-28] MEDS: RENVELA PO SCH ×3 (08:52→17:54)
[2017-01-28 10:24] LABS: Anion Gap TNR mmol/L; Carbon Dioxide TNR mmol/L (22-30); Potassium TNR mmol/L (3.6-5.0)
[2017-01-28 10:41] LABS: Hematocrit 31.2 % (35.5-45.6); Hemoglobin 10.4 gm/dl (11.8-15.2); Mean Corpuscular HGB Conc 33 % (32-34); Mean Corpuscular Hemoglobin 32 pg (28-32); Mean Corpuscular Volume 97 fl (84-94); Platelet Count 319 K/mm3 (140-440); Red Blood Count 3.22 M/mm3 (3.65-5.03); Red Cell Distribution Width 18.2 % (13.2-15.2); White Blood Count 7.5 K/mm3 (4.5-11.0)
[2017-01-28] MEDS: NORVASC PO SCH (11:00)
[2017-01-28] MEDS: PROTONIX PO SCH (11:00)
[2017-01-28] MEDS: TOPROL XL PO SCH (11:00)
[2017-01-28 12:09] LABS: BUN/Creatinine Ratio 1.72; Calcium 9.7 mg/dL (8.4-10.2); Chloride 92.4 mmol/L (98-107); Potassium 4.9 mmol/L (3.6-5.0)
[2017-01-28 12:30] LABS: Calcium TNR mg/dL (8.4-10.2); Sodium TNR mmol/L (137-145)
[2017-01-28 12:31] LABS: BUN/Creatinine Ratio TNR; Blood Urea Nitrogen TNR mg/dL (9-20); Chloride TNR mmol/L (98-107); Glucose TNR mg/dL (75-100)
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
[2017-01-28] MEDS: DELTASONE PO SCH (21:41)
[2017-01-28] MEDS: NEURONTIN PO SCH (21:42)
[2017-01-29] MEDS: RENVELA PO SCH ×3 (08:00→18:13)
[2017-01-29 08:42] LABS: Hematocrit 30.3 % (35.5-45.6); Hemoglobin 10.2 gm/dl (11.8-15.2); Mean Corpuscular HGB Conc 34 % (32-34); Mean Corpuscular Hemoglobin 32 pg (28-32); Mean Corpuscular Volume 96 fl (84-94); Platelet Count 348 K/mm3 (140-440); Red Blood Count 3.16 M/mm3 (3.65-5.03); Red Cell Distribution Width 17.9 % (13.2-15.2); White Blood Count 7.1 K/mm3 (4.5-11.0)
[2017-01-29 09:07] LABS: BUN/Creatinine Ratio 2.12; Calcium 9.4 mg/dL (8.4-10.2); Chloride 93.7 mmol/L (98-107); Potassium 5.5 mmol/L (3.6-5.0)
--- NOTE | 2017-01-29 09:43 | Progress Note ---
Assessment and Plan Impression: * End stage renal disease on HD * Fever * Tachycardia * Hx of CAP * Anemia secondary to ESRD * Secondary hyperparathyroidism * hyperkalemia Plan: * Hemodialysis today and TTHSAT. UF as tolerated * CXR unremarkable; no pe on CTA * admits to high k intake last pm * uf with HD as tolerated * strict i/os * Epogen for goal Hb 10-12 * Renal diet * ok to dc after dialysis today from renal standpoint Subjective Date of service: 01/29/17 Principal diagnosis: esrd Interval history: resting well in bed today Objective - Exam Narrative Exam: Gen: Lethargic HEENT: NCAT Chest: symmetric Lungs: CTA CV: tachy, regular Abdomen: soft, NTND, NABS Ext: no edema - Vital Signs Vital signs: Vital Signs - 12hr 01/28/17 01/29/17 01/29/17 22:00 00:43 04:30 Temperature 98.4 F 98.6 F Pulse Rate [ 94 H 96 H Right Radial] Respiratory 18 18 20 Rate Blood Pressure 152/82 158/81 [Right Arm] O2 Sat by Pulse 97 98 Oximetry - Lab 01/29/17 07:48 01/29/17 07:48 Most recent lab results Calcium 9.4 mg/dL (8.4-10.2) 01/29/17 07:48
[2017-01-29] MEDS: NORVASC PO SCH (11:31)
[2017-01-29] MEDS: TOPROL XL PO SCH (11:31)
[2017-01-29] MEDS: PROTONIX PO SCH (11:31)
[2017-01-29] MEDS ORDERED: TOPROL XL PO ONE (11:54)
--- NOTE | 2017-01-29 11:54 | Discharge Summary ---
Providers - Providers Date of Admission: 01/24/17 00:37 Date of discharge: 01/29/17 Attending physician: CARLITA BOWDEN MD 01/24/17 06:40 Consult to Physician [CONS] Routine Consulting Provider: KIM HILL Reason For Exam: ESRD ON DIALYSIS Place consult to:: KIM HILL Notified:: Y Was contact made?: Yes If yes, spoke with:: Indira COLMENARES Time called:: 08:15 01/24/17 18:57 Consult to Physician [CONS] Routine Consulting Provider: EDI ALVA Reason For Exam: SINUS ARRYTHMIA Place consult to:: DR. ALVA Notified:: [facility]ING SERVICES Phone number called:: [phone] Was contact made?: Yes If yes, spoke with:: AWAIS Time called:: 19:13 Comment:: ROSETTA NOTIFIED 01/27/17 09:35 Consult to Physician [CONS] Routine Consulting Provider: MARILYN MANCIA Reason For Exam: Recurrent Fever, multiple admissions Place consult to:: Dr. Mancia Notified:: Rebekah COSTELLO Phone number called:: If yes, spoke with:: Voicemail left for Dr. Mancia Time called:: 12:20 Primary care physician: CHRISTMAS TREE GRADER Hospitalization Condition: Stable Disposition: DC-01 TO HOME OR SELFCARE Time spent for discharge: 35 mins Exam - Constitutional Vitals: Temp Pulse Resp BP Pulse Ox 98.6 F 135 H 20 158/81 98 01/29/17 04:30 01/29/17 10:22 01/29/17 04:30 01/29/17 04:30 01/29/17 04:30 Plan Activity: advance as tolerated, fall precautions Diet: renal Special Instructions: record daily weights, record daily BP diary Additional Instructions: follow with hematology for fever of unknown origin. Follow up with: RICARDO KURTZ MD [Staff Physician] - 7 Days PRIMARY CAREMD [Primary Care Provider] - 3-5 Days MARILYN MANCIA MD [Staff Physician] - 7 Days ARIADNE CARRILLO MD [Staff Physician] - 7 Days Forms: Discharge Signature Page Prescriptions: amLODIPine [Norvasc] 5 mg PO QDAY #30 tablet Metoprolol Xl [Metoprolol SUCCINATE ER TAB] 50 mg PO QDAY #30 tablet
[2017-01-29] MEDS: ZOSYN/NS 2.25 GM/50ML 2.25 GM/50 ML BAG IV SCH (12:34)
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
[2017-01-29 19:52] VITALS: BP 133/76
[2017-01-30] MEDS ORDERED: TOPROL XL PO SCH (10:00)
== END 2017-01-29 20:30 | disposition home or self-care (01) | DRG 391 ==
LOC: ED 19:06 → 4A 01-24 00:37 → 3A 01-24 11:04 → 4A 01-25 00:11
PROVIDERS: ADMIT Internal Medicine; ATTEND Internal Medicine
PROC: 5A1D60Z (ICD-10-PCS; principal; 2017-01-24)
PROC: 05HQ33Z Insertion of Infusion Device into Left External Jugular Vein, Percutaneous Approach (ICD-10-PCS; 2017-01-24)
DX: K52.9 Noninfective gastroenteritis and colitis, unspecified (principal); N18.6 End stage renal disease; G93.40 Encephalopathy, unspecified; I21.4 Non-ST elevation (NSTEMI) myocardial infarction; I12.0 Hypertensive chronic kidney disease with stage 5 chronic kidney disease or end stage renal disease; N25.81 Secondary hyperparathyroidism of renal origin; D68.8 Other specified coagulation defects; R65.10 Systemic inflammatory response syndrome (SIRS) of non-infectious origin without acute organ dysfunction; D63.1 Anemia in chronic kidney disease; K57.90 Diverticulosis of intestine, part unspecified, without perforation or abscess without bleeding; Z85.528 Personal history of other malignant neoplasm of kidney; Z90.49 Acquired absence of other specified parts of digestive tract; Z90.5 Acquired absence of kidney
CPT/HCPCS: 36415; 71010; 71275; 74176; 78582; 80048; 80061; 82140; 82550; 82553; 82805; 84439; 84443; 84484; 85007; 85014; 85018; 85025; 85027; 85049; 85379; 85520; 85610; 85730; 87040; 93005; 93010; 93306; 94760; 96365; 96366; 96368; 96375; A9270-GY; A9540; A9558; J1644; J2270; J2405; J2543; J3370; J7030; J7050; J7512; Q9967

== ENCOUNTER 2021-05-26 06:38 | Day surgery (SDC) | payer MEDICARE, OTHER ==
[2021-05-26] MEDS ORDERED: SODIUM CHLORIDE 0.9% 1000 ML 1,000 ML IV SCH (07:00)
--- NOTE | 2021-05-26 07:49 | Anesthesia Consultation ---
Anesthesia Consult and Med Hx - Airway Anesthetic Teeth Evaluation: Good, Partials ROM Head & Neck: Adequate Mental/Hyoid Distance: Adequate Mallampati Class: Class II Intubation Access Assessment: Probably Good - Pulmonary Exam CTA: Yes - Cardiac Exam Cardiac Exam: RRR - Pre-Operative Health Status ASA Pre-Surgery Classification: ASA3 Proposed Anesthetic Plan: MAC - Pulmonary Hx Smoking: No Hx Asthma: No COPD: No Hx Pneumonia: No Hx Sleep Apnea: No - Cardiovascular System Hx Hypertension: Yes (improved with increased frequency of HD - currently not on medication) Hx Coronary Artery Disease: No Hx Heart Attack/AMI: No - Central Nervous System Hx Seizures: No CVA: No - Gastrointestinal Hx Gastroesophageal Reflux Disease: Yes - Endocrine Hx Renal Disease: Yes (M-F HD - last on 05/25/21) Hx End Stage Renal Disease: Yes Hx Non-Insulin Dependent Diabetes: No Hx Thyroid Disease: No - Hematic Hx Anemia: Yes - Other Systems Hx Alcohol Use: No Hx Substance Use: No Hx Cancer: No Hx Obesity: Yes (BMI 32) - Additional Comments Anesthesia Medical History Comments: No hx of anesthetic complications.
--- NOTE | 2021-05-26 07:50 | Anesthesia Day of Surgery ---
Anesthesia Day of Surgery - Day of Surgery Patient Examined: Yes Patient H&P Reviewed: Yes Patient is NPO: Yes
[2021-05-26] MEDS ORDERED: propofoL 200 MG/20 ML VIAL IV ONE (07:51)
[2021-05-26] MEDS ORDERED: LIDOCAINE MPF (2%) 20 MG/1 ML VIAL 5 ML ONE (07:51)
[2021-05-26] MEDS ORDERED: WATER FOR IRRIG STERILE 1,000 ML BOTTLE ONE (07:54)
[2021-05-26] MEDS ORDERED: WATER FOR IRRIG STERILE 250 ML BOTTLE IR ONE (07:54)
--- NOTE | 2021-05-26 08:37 | Operative Report ---
Operative Report Operative Report: H&P scanned in chart DOS: 05/26/21 SURGEON: Deni Hardy MD EGD with biopsy REPORT PREOPERATIVE DIAGNOSIS and POSTOPERATIVE DIAGNOSIS: abdominal pain ESTIMATED BLOOD LOSS: minimal DESCRIPTION OF PROCEDURE: A high-resolution EGD scope was passed through the oropharynx, esophagus, stomach, and second portion of duodenum. The scope was carefully withdrawn. Retroflexion was performed in the stomach. At the end of the procedure, the scope was cleaned using normal technique. Vital signs monitored continuously throughout. SEDATION: Provided by [facility]iology [facility]. COMPLICATIONS: None. FINDINGS: * No gross lesions in the second portion of the duodenum * Minimal duodenitis in the duodenal bulb with mild erythema no ulceration was present * Hemorrhagic gastritis in the gastric antrum with erythema mild edema and small amount of overlying heme. Biopsies were taken to rule out H. Pylori infection. A total of 5 biopsies were taken, 2 from the antrum, 1 from the incisura, 2 from the body. * Z-line slightly irregular at 38 cm from the incisors * Remainder of exam unremarkable RECOMMENDATIONS: * Start pantoprazole 40 mg once daily and follow-up biopsy results * Proceed with x-ray ordered in the office
--- NOTE | 2021-05-26 08:41 | Post Anesthesia Evaluation ---
- Post Anesthesia Evaluation Patient Participated: Yes Airway Patent: Yes Stable Respiratory Function: Yes Nausea/Vomiting: No Temp > 96.8F: Yes Pain Manageable: Yes Adequeate Hydration: Yes Anesthesia Complications: No
[2021-05-26 08:49] VITALS: BP 132/79
== END 2021-05-26 09:05 | disposition home or self-care (01) ==
LOC: GIO 06:38
PROVIDERS: ATTEND Student in an Organized Health Care Education/Training Program
DX: R10.13 Epigastric pain (principal); K29.80 Duodenitis without bleeding; K29.61 Other gastritis with bleeding; K21.9 Gastro-esophageal reflux disease without esophagitis; I12.0 Hypertensive chronic kidney disease with stage 5 chronic kidney disease or end stage renal disease; N18.6 End stage renal disease; E78.5 Hyperlipidemia, unspecified; Z99.2 Dependence on renal dialysis; E66.9 Obesity, unspecified; Z68.32 Body mass index [BMI] 32.0-32.9, adult; Z90.49 Acquired absence of other specified parts of digestive tract; Z90.5 Acquired absence of kidney; Z79.899 Other long term (current) drug therapy; Z98.890 Other specified postprocedural states
CPT/HCPCS: 43239; 88305; 88342; J2704; J7030